=== PATIENT | female | born 1935 | race Caucasian/White ===

== ENCOUNTER 2016-06-15 14:00 | Emergency (ER) | payer MEDICARE, BC ==
[2016-06-15 14:11] VITALS: BP 143/63
--- NOTE | 2016-06-15 14:22 | UC ---
Ear Complaint HPI - HPI Summary HPI Summary: Hearing aides haven't been working well lately, went to [facility] and was told she had wax in her ears and needs to have them flushed. - History of Current Complaint Chief Complaint: UCEar Stated Complaint: PLUGGED EARS Time Seen by Provider: 06/15/16 14:12 Hx Obtained From: Patient Hx Last Menstrual Period: NA ?: No Onset/Duration: Gradual Onset, Lasting Weeks Severity Initially: Mild Severity Currently: Mild Aggravating Factors: Nothing Alleviating Factors: Nothing Associated Signs/Symptoms: Positive: Hearing Loss. Negative: Trauma to Ear - Allergies/Home Medications Allergies/Adverse Reactions: Allergies Allergy/AdvReac Type Severity Reaction Status Date / Time Penicillins [PCN] Allergy Rash Verified 09/06/15 12:19 PMH/Surg Hx/FS Hx/Imm Hx Endocrine History Of: Reports: Thyroid Disease - THYROIDECTOMY Cardiovascular History Of: Reports: Hypertension - Surgical History Surgical History: Yes Surgery Procedure, Year, and Place: THYROIDECTOMY: 1960(PARTIAL), 1984. BILATERAL MASTECTOMY 1962, 1983. CHOLECYSTECTOMY - Family History Known Family History: Positive: Hypertension - Social History Alcohol Use: None Substance Use Type: None Smoking Status (MU): Never Smoked Tobacco Review of Systems Constitutional: Negative Skin: Negative Eyes: Negative ENT: Other - ear fullness Respiratory: Negative Cardiovascular: Negative Gastrointestinal: Negative Genitourinary: Negative Motor: Negative Neurovascular: Negative Musculoskeletal: Negative Neurological: Negative Psychological: Negative All Other Systems Reviewed And Are Negative: Yes Physical Exam Triage Information Reviewed: Yes Appearance: Well-Appearing, No Pain Distress, Well-Nourished Vital Signs: Initial Vital Signs Temp 97.1 F 06/15/16 14:06 Pulse 77 06/15/16 14:06 Resp 16 06/15/16 14:06 BP 143/63 06/15/16 14:06 Pulse Ox 100 06/15/16 14:06 Vital Signs Reviewed: Yes Eye Exam: Normal Eyes: Positive: Conjunctiva Clear ENT: Positive: Pharynx normal, Other: - biat cerumen impaction. Negative: Hearing grossly normal, Nasal congestion Dental Exam: Normal Neck exam: Normal Neck: Positive: Supple, Nontender, No Lymphadenopathy Respiratory Exam: Normal Respiratory: Positive: Chest non-tender, Lungs clear, Normal breath sounds, No respiratory distress, No accessory muscle use Cardiovascular Exam: Normal Cardiovascular: Positive: RRR, No Murmur Musculoskeletal Exam: Normal Neurological Exam: Normal Psychological Exam: Normal Skin Exam: Normal Ear Complaint Course/Dx - Differential Dx/Diagnosis Provider Diagnoses: Bilat cerumen impaction Discharge - Discharge Plan Condition: Stable Disposition: HOME Patient Education Materials: Cerumen Impaction (ED) Referrals: Noa Nelson MD [Primary Care Provider] - If Needed
== END 2016-06-15 14:51 | disposition home or self-care (01) ==
LOC: UCEAST 14:00
DX: H61.23 Impacted cerumen, bilateral (principal); Z88.0 Allergy status to penicillin; Z90.49 Acquired absence of other specified parts of digestive tract
CPT/HCPCS: 99201; G0463

== ENCOUNTER 2017-04-19 14:40 | Day surgery (SDC) | payer MEDICARE, BC ==
[2017-04-19] MEDS ORDERED: Sodium Bicarbonate 8.4% IV* 50 ML VIAL ONE (15:27)
[2017-04-19] MEDS ORDERED: Lidocaine 1% MPF wEPI 200,000* 30 ML SDV ONE (15:28)
[2017-04-19 21:27] VITALS: BP 159/67
--- NOTE | 2017-04-20 05:02 | OP ---
DATE OF OPERATION: 04/19/17 - [facility] DATE OF : 39 SURGEON: Tono Hutton MD TRANSITION TEACHER: None. ANESTHESIOLOGIST: None. ANESTHESIA: Local only with 1% lidocaine with epinephrine. PRE-OP DIAGNOSES: 1. Right carpal tunnel syndrome. 2. Right ulnar nerve compression at the wrist. POST-OP DIAGNOSES: 1. Right carpal tunnel syndrome. 2. Right ulnar nerve compression at the wrist. OPERATIVE PROCEDURE: 1. Right carpal tunnel release. 2. Right ulnar nerve decompression at the wrist. INDICATIONS: Danika is 82. She has had progressive symptoms. We talked about risks and benefits. She wanted to proceed. ESTIMATED BLOOD LOSS: 5 mL. COMPLICATIONS: None. FINDINGS: As expected. DESCRIPTION OF PROCEDURE: Danika was seen in the preoperative holding area. The correct, site, and side of the procedure were identified. We came back to the operating room. The arm was prepped and draped in the usual fashion. In the preop area, we had had a time-out and I infiltrated the operative area with 1% lidocaine with epinephrine and bicarbonate. I made a longitudinal incision in the standard location for a carpal tunnel release. This was brought across wrist flexion crease in Kai-type fashion. The dissection was carried down and the fascia proximally was opened. The ulnar neuro-vascular bundle was followed in the Guyon's canal. The fascia overlying the Guyon's canal was released. There was a very large vessel that was ____ and kinking the ulnar nerve. This was dissected free and then cauterized with the bipolar. The release of the Guyon's canal was completed distally. I then came back proximally and released the antebrachial fascia little bit more. I then came down and released the transverse carpal ligament just off the radial aspect of the hook of Hamate until it was completely decompressed distally. I then came back ulnar and mobilized the ulnar artery a bit and then decompressed the motor branch diving deep around the hook of the Hamate, releasing subfascial layer. Once everything was completely decompressed and there was absolutely no compression on either nerve, I irrigated out the wound. Skin was closed with 4-0 Monocryl suture and dressed with Xeroform, 4x4s, sterile Webril, and an Derick bandage. She was taken to the recovery room in stable condition. [id number]/[facility] #: [id number] MTDD
== END 2017-04-19 21:26 | disposition home or self-care (01) ==
LOC: OREAST 14:40
PROVIDERS: ATTEND Orthopaedic Surgery Hand Surgery
DX: G56.01 Carpal tunnel syndrome, right upper limb (principal); G56.21 Lesion of ulnar nerve, right upper limb; I10 Essential (primary) hypertension; Z85.3 Personal history of malignant neoplasm of breast; E03.9 Hypothyroidism, unspecified
CPT/HCPCS: J2001

== ENCOUNTER 2017-08-28 13:00 | Inpatient (IN) | payer MEDICARE, BC ==
[2017-08-29] MEDS ORDERED: Buffered Lidocaine 0.9% SYRIN* 5 ML/SYR SYRINGE INTRADERM ONE (13:12)
[2017-08-30] MEDS ORDERED: Famotidine TAB* 20 MG PO ONE (06:00)
[2017-08-30] MEDS ORDERED: Dexamethasone IV* 4 MG/ML 1 ML (4 MG) IV SLOW PU ONE (06:00)
[2017-08-30] MEDS ORDERED: Famotidine TAB* 20 MG ONE (06:56)
[2017-08-30] MEDS ORDERED: Dexamethasone IV* 4 MG/ML 1 ML (4 MG) ONE (06:56)
[2017-08-30] MEDS ORDERED: Buffered Lidocaine 0.9% SYRIN* 5 ML/SYR SYRINGE ONE (06:57)
[2017-08-30] MEDS ORDERED: Clindamycin 900 MG IVPREMIX(* 900 MG/50 ML SDV IV ONE (06:57)
[2017-08-30] MEDS ORDERED: fentaNYL* 50 MCG/ML 2 ML VIAL (100 MCG VIAL) ONE (07:27)
[2017-08-30] MEDS ORDERED: Midazolam* 1 MG/ML 2 ML VIAL (2 MG) ONE ×2 (07:27→08:25)
[2017-08-30] MEDS ORDERED: Morphine PF AMP (0.5MG/ML)* 5 MG/10 ML AMP ONE (07:27)
[2017-08-30] MEDS ORDERED: celeCOXIB CAP* 100 MG ONE (07:36)
[2017-08-30] MEDS: celeCOXIB CAP* 200 MG PO SCH ×2 (07:40→20:58)
[2017-08-30] MEDS ORDERED: Bupivacaine 0.5% PF 10 ML VIAL INJ ONE (07:57)
[2017-08-30] MEDS ORDERED: EPHEDrine (Pressors)* 50 MG/ML VIAL ONE (08:42)
[2017-08-30] MEDS ORDERED: Phenylephrine INJ* 10 MG/ML 1 ML VIAL (10 MG) ONE ×2 (08:44→09:12)
[2017-08-30] MEDS ORDERED: Lidocaine 2% PF * 5 ML VIAL ONE (08:51)
[2017-08-30] MEDS ORDERED: Propofol* 10 MG/ML 20 ML BTL IV PUSH ONE (08:51)
[2017-08-30] MEDS ORDERED: Dexmedetomidine* 200 MCG/2 ML 2 ML VIAL ONE (09:31)
[2017-08-30] MEDS ORDERED: Polyethylene Glycol 3350* 17 GM PACKET PO PRN (09:33)
[2017-08-30] MEDS ORDERED: Bisacodyl SUPP* 10 MG SUPP PR PRN (09:33)
[2017-08-30] MEDS ORDERED: Magnesium Hydroxide LIQ* 30 ML UDC PO PRN (09:33)
[2017-08-30] MEDS ORDERED: Scopolamine 1.5 mg* PATCH TRANSDERM PRN (09:43)
[2017-08-30] MEDS ORDERED: Ondansetron INJ* 2 MG/ML VIAL IV PRN (09:43)
[2017-08-30] MEDS ORDERED: Nalbuphine* 20 MG/ML 1 ML VIAL IV PRN (09:43)
[2017-08-30] MEDS ORDERED: Naloxone* 0.4 MG/ML 1 ML VIAL IV PRN ×2 (09:43→09:50)
[2017-08-30] MEDS ORDERED: oxyCODONE TAB* 5 MG TAB PO PRN ×2 (09:43→09:50)
[2017-08-30] MEDS ORDERED: Acetaminophen IV 1GM/100ML * 1,000 MG/100 ML VIAL IVPB ONE (09:50)
[2017-08-30] MEDS ORDERED: PROCHLORPERAZINE INJ 5 MG/ML 2 ML VIAL IV PRN (09:50)
[2017-08-30] MEDS ORDERED: fentaNYL* 50 MCG/ML 2 ML VIAL (100 MCG VIAL) IV PRN (09:50)
[2017-08-30] MEDS ORDERED: Ondansetron INJ* 2 MG/ML VIAL ONE (10:17)
[2017-08-30] MEDS ORDERED: Acetaminophen IV 1GM/100ML * 100 ML ONE (10:51)
[2017-08-30] MEDS: Acetaminophen TAB* 325 MG PO SCH ×2 (11:14→17:30)
--- NOTE | 2017-08-30 11:31 | RAD ---
INDICATION: Status post total left hip replacement surgery. COMPARISON: Comparison is made with a prior study from February 09, 2017. TECHNIQUE: A single portable film of the left hip was obtained in the operating room. FINDINGS: The patient is undergoing a total left hip replacement surgery. The acetabular prostheses is in place. There is also a femoral template prostheses in place. IMPRESSION: INTRAOPERATIVE CONTROL FILMS.
--- NOTE | 2017-08-30 11:56 | RAD ---
Indication: Postop LEFT total hip replacement. Comparison: No relevant prior exams available on the [facility] PACS for comparison. Technique: AP pelvis and AP and crosstable lateral views LEFT hip. Report: LEFT total hip replacement in place with normal alignment. Negative for periprosthetic fracture. Overlying soft tissue edema and subcutaneous emphysema. The contralateral RIGHT hip is remarkable for advanced axial joint space narrowing with associated osteophytosis and subchondral sclerosis. IMPRESSION: Unremarkable immediate postop appearance of the LEFT total hip replacement.
--- NOTE | 2017-08-30 11:56 | RAD ---
Indication: Postop LEFT total hip replacement. Comparison: No relevant prior exams available on the [facility] PACS for comparison. Technique: AP pelvis and AP and crosstable lateral views LEFT hip. Report: LEFT total hip replacement in place with normal alignment. Negative for periprosthetic fracture. Overlying soft tissue edema and subcutaneous emphysema. The contralateral RIGHT hip is remarkable for advanced axial joint space narrowing with associated osteophytosis and subchondral sclerosis. IMPRESSION: Unremarkable immediate postop appearance of the LEFT total hip replacement.
--- NOTE | 2017-08-30 14:27 | CONS ---
CC: Dr. Nelson; Dr. Domingo* CONSULTATION REPORT: DATE OF CONSULT: 08/30/17 PRIMARY CARE PROVIDER: Dr. Nelson. ATTENDING PHYSICIAN WHILE IN THE HOSPITAL: Chadd Mcnair MD (report being dictated by Wiley Mccray NP). REASON FOR MEDICAL CONSULTATION: Evaluation and medical management of comorbid medical conditions. REQUESTING PHYSICIAN OF CONSULT: Dr. Domingo. HISTORY OF PRESENT ILLNESS: Ms. Link is an 82-year-old female patient. She has a history of hypertension; breast cancer, status post bilateral mastectomies ; history of hypothyroidism; macular degeneration; angioedema of unknown etiology and history of arthritis. She presented to Dr. Domingo's service in the outpatient setting, she was having issues with her left hip. She has failed conservative therapy and ultimately felt that she would require and benefit from a total hip replacement, which she underwent today. The patient is evaluated in the PACU. Her only complaint really is that she feels drowsy. She specifically denied having any chest pain, lightheadedness. She states she does not feel faint, she denies having any chest pain, shortness of breath, there is no abdominal pain. She said she does not feel nauseous and her pain is well controlled. Because of her medical complexities, hospitalist service is asked to help with medical management. PAST MEDICAL HISTORY: Significant for: 1. Hypertension. 2. Breast cancer. 3. Hypothyroidism. 4. Macular degeneration. 5. Angioedema. 6. Arthritis. PAST SURGICAL HISTORY: Patient had: 1. Bilateral mastectomies. 2. Thyroidectomy. 3. Cholecystectomy. 4. Villanueva's neuroma excision. 5. Cataract extraction. 6. x2. MEDICATIONS: Home medications include, this is according to the list provided: 1. Tramadol 50 mg p.o. at bedtime. 2. PreserVision 1 tablet p.o. b.i.d. 3. Mobic 15 mg in the morning. 4. Synthroid 150 mcg p.o. daily. 5. Advil 600 mg 4 times a day as needed. 6. Hydrochlorothiazide 25 mg p.o. daily. 7. Glucosamine chondroitin 3 tablets p.o. daily. 8. Cetirizine 10 mg p.o. daily. 9. Calcium with vitamin D 2 tablets p.o. daily. 10. Aspirin 81 mg daily. ALLERGIES: Allergies to medications include PENICILLIN. FAMILY HISTORY: Mother had a history of uterine cancer, father had a history of CAD. SOCIAL HISTORY: She does not smoke. She does drink a glass of wine with dinner. She lives at [place]. Surrogate decision maker is her sister and her children. REVIEW OF SYSTEMS: There is no documented fever. She denies having any significant weight change. There is no double vision. She denies having any ear discharge. There is no rhinorrhea. There is no sore throat. No thyroid enlargement. She denied having any chest pain. No orthopnea, nocturnal dyspnea. There is no abdominal pain, no nausea, no vomiting. No dysuria, no frequency. No seizures, no loss of consciousness. No pruritus and no skin ulcerations. Review of 14 systems completed, all others negative. PHYSICAL EXAM: Vital Signs: Blood pressure 112/58, pulse 69, respirations 21, O2 sat 98%, temperature 97.7. General: At this time, Ms. Link is an 82-year- old female patient, she appears to be well nourished and well developed. She is sitting in the PACU bed. She does not appear to be in any acute distress. HEENT: Head is atraumatic and normocephalic. Eyes: EOMs are intact. Sclerae anicteric and not pale. Neck: Supple. Throat: Oral mucosa appears to be moist. No oropharyngeal erythema. Heart: Sounds S1, S2. Regular rate and rhythm. No murmurs, rubs or gallops. Lungs: Clear to auscultation. No wheezes, rales or rhonchi. Abdomen: Soft, flat, nontender. Bowel sounds are present. Extremities: Pulses are 2+ throughout. She is unable to move the lower extremities as she is in a hip adductor pillow. Distal CSM checks are intact. Neurologically, she is drowsy, but she is awake and she is alert, she is oriented x3. She has no gross focal deficits. Her skin, she has an incision to her left hip, which is covered with a dressing clean, dry and intact. DIAGNOSTIC STUDIES/LAB DATA: Labs reveal a WBC of 8.0, RBC of 4.27, hemoglobin 13.3, hematocrit of 39, platelet count of 243. INR 0.94. Sodium is 139, potassium 4, chloride 100, bicarb 32, BUN 22, creatinine 1.04, glucose is 70. Urine obtained preop showed 1+ protein, 1+ blood, 3+ rbc. Microbiology was no growth. EKG preop showed normal sinus rhythm, rate of 77. No ST elevation or T-wave inversions. She had a preop chest x-ray, showed no active cardiopulmonary disease. Old medical records were reviewed. IMPRESSION: Ms. Link is an 82-year-old female patient coming into Dr. Domingo's service today for an elective left total hip. We were asked to evaluate in consult. RECOMMENDATIONS: 1. Status post left total hip with further management with Dr. Domingo and her team. 2. Hypertension. I am going to hold her hydrochlorothiazide in the perioperative setting. She was 120 systolic postoperatively. I do not want her to become hypotensive. So, I will hold this and restart when able. 3. History of breast cancer, follow up with the PCP. 4. History of hypothyroidism, continue her Synthroid. 5. Macular degeneration, continue supportive care and meds prescribed. 6. Angioedema. Not an active issue currently. 7. Arthritis, follow up with her PCP. 8. Code status: She does have a MOLST form; however, she has rescinded this and she is wishing to be a full code during this hospitalization, so we will honor this. 9. DVT prophylaxis deferred to the primary team. 10. Fluids, electrolytes and nutrition: I would recommend a regular diet. TIME SPENT: Time spent on the consult 50 minutes; greater than half the time spent [id number] with the patient, obtaining my history and physical, the other half time was spent going over the plan of care with the patient and implementing plan of care. I did discuss the plan of care with my attending, Dr. Mcnair, he is in agreement. WILEY MCCRAY, SERGIO [id number]/[facility] #: [id number] DAGO
[2017-08-30] MEDS ORDERED: Warfarin TAB(*) 6 MG PO ONE (17:00)
[2017-08-30] MEDS: Clindamycin 600 MG IVPREMIX(* 600 MG/50 ML SDV IV SCH (17:30)
[2017-08-30] MEDS: Magnesium Hydroxide LIQ* 30 ML UDC PO SCH (20:57)
[2017-08-30] MEDS: Docusate CAP* 100 MG PO SCH (20:58)
[2017-08-30] MEDS: MINERALS AREDS2 PO SCH (20:59)
[2017-08-30] MEDS: MULTIVITAMINS PO SCH (20:59)
--- NOTE | 2017-08-30 23:03 | OP ---
OPERATIVE REPORT: DATE OF OPERATION: 08/30/17 DATE OF : 39 ATTENDING SURGEON: Ricarda Domingo MD SHEETMETAL TRADES WORKER: HEATH Dewitt Clint did help throughout the procedure with preparation of the leg, wound retraction, manipulation of the hip and wound closure. ANESTHESIOLOGIST: Dr. Batres. ANESTHESIA: Spinal. 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 OPERATIVE PROCEDURE: Left total hip arthroplasty with acetabular bone autografting and primary abductor tendon repair. COMPLICATIONS: None. ESTIMATED BLOOD LOSS: 300 cc. SPECIMEN: Femoral head and acetabular reamings sent to pathology. HARDWARE USED: This was uncemented Lobito total hip arthroplasty hardware. For the cup, a Tritanium cluster hole shell 54E, 2 Torx cancellous bone screws were used both for a length 20 mm. For the liner, an MDM cementless liner 42E. For the stem, an Accolade TMZF size 3 with a 127-degree neck. For the head, a Lobito LFIT V40 femoral head 28 -4 and the insert is a 28/48/42E Baptist X3 MDM insert. BRIEF HISTORY/INDICATIONS: Ms. Link is an 82-year-old female with years of increasingly severe left hip pain. Radiographs showed bone on bone arthritis. She failed conservative treatment with anti-inflammatory, pain medication and physical therapy. She elected to undergo left total hip arthroplasty due to continued pain and decreased quality of life. Informed consent was obtained from the patient. She understood the risk of surgery included, but were not limited to bleeding, infection, damage to nearby structures, continued pain, need for further surgery, intraoperative fracture, nerve palsy, hardware failure or loosening, dislocation, leg length discrepancy, stroke, heart attack , blood clot and . She wished to proceed. INTRAOPERATIVE FINDINGS: Intraoperatively, the patient was noted to have severe end-stage arthritis. She had complete loss of cartilage along the acetabulum and femoral head. She had extensive osteophyte formation around the femoral head and neck. The patient was noted to have subchondral cyst formation in the superior weightbearing portion of the acetabulum. This was bone grafted with autograft in the femoral head. The patient was also noted to have a gluteus medius tendon tear involving the vast majority of the greater trochanteric insertion. DESCRIPTION OF PROCEDURE: Ms. Link was identified in the preanesthesia unit. The left lower extremity was marked as a correct operative side. Informed consent was signed and placed in the chart. The patient was taken to the operating room and placed under spinal anesthesia. A Hernandez catheter was placed. The patient was placed in the right lateral position on the peg board. All bony prominences were well padded. Left lower extremity was prepped and draped in the usual sterile fashion. Preop time-out was made to correctly identify the patient's side and site. Appropriate perioperative antibiotics were given within 1 hour of incision. A 12 cm posterior hip incision was made with a 10 blade carried down to the lateral fascial layer. Lateral fascial layer was incised in line with the skin incision. Charnley retractor was placed. The piriformis and conjoined tendon were elevated off the posterolateral femur using electrocautery. These were tagged with #5 Ethibond. Electrocautery was used to make a standard posterolateral capsular flap. This was also tagged with #5 Ethibond. The hip was carefully dislocated. Lesser troch to the center of the femoral head measured 55 mm. Oscillating saw was used to make the appropriate femoral neck cut. It was clearly noted that the abductor tendon at the greater trochanter had chronic appearing tear and there was bare bone here instead of intact tendon. The tendon had retracted proximally. The femoral head was removed and the femur was retracted anteriorly. After appropriate placement of retractors, the acetabulum was easily visualized. Any remaining labrum was sharply removed from the acetabular rim. The acetabulum was successfully reamed up to a size 53. A bleeding subchondral bone bed was obtained. There was subchondral cyst formation in the superior weightbearing dome of the acetabulum. Any cystic material was carefully removed using a curette and rongeur. Femoral head autograft was used to pack the cystic area. 53 trial had excellent fit. Final implant chosen was a Tritanium cluster hole shell 54E. This was impacted into the acetabulum without difficulty. The hip was stable and had appropriate anteversion and abduction angle. Two 20 mm screws were placed in the superior posterior quadrant for extra stability. An MDM cementless liner 42E was chosen. This was impacted into the acetabulum. Stability of the liner was checked and rechecked and noted to be stable. Attention was next turned to preparation of the proximal femur. A canal finder was used to enter the proximal femur. The proximal femur was sequentially broached up to a size 3. Size 3 broach had good fit. A 127 neck trial was placed as well as 28 +0 head trial. Lesser troch to center of femoral head measured 60 mm, therefore -4 head trial was chosen. Lesser troch to center of femoral head measured 56 mm. The hip was reduced and taken through a range of motion. The hip was stable in all positions. There was appropriate soft tissue tension and leg lengths. The hip was dislocated. All trials were removed. Final implants chosen was an accolade TMZF size 3 with a 127-degree neck. This was impacted into the femoral canal without difficulty. There was excellent stability and appropriate anteversion. An LFIT V40 28 -4 femoral head was chosen as well a 28/48/42E MDM insert. This was impacted on to the femoral neck without difficulty. The hip was reduced and taken through a range of motion. The hip was stable in all positions. Previously tagged capsule and tendons were reapproximated to the posterolateral femur using #5 Ethibond through 2 trochanteric drill holes. #5 Ethibond was then used to primarily repair any retracted tendon back to the region of the greater trochanter in its natural origin. Lateral fascial layer was closed using interrupted #1 Vicryl. The rest of the incision was closed in a layered fashion using 0 and 2-0 Vicryl. Skin was closed using running 3-0 Monocryl and Dermabond. Sterile Adaptic, 4x4s and paper tape were placed over this. The patient's anesthesia was reversed without difficulty. She was taken to the PACU in stable condition. Intended weightbearing will be weightbearing as tolerated. Intended DVT prophylaxis will be Coumadin with a Lovenox bridge. [id number]/[facility] #: [id number] [facility]
[2017-08-31] MEDS ORDERED: Ondansetron TAB* 4 MG PO PRN (00:25)
[2017-08-31] MEDS ORDERED: diPHENhydraMINE IV* 50 MG/ML 1 ml VIAL (BENADRYL) IV PRN (00:25)
[2017-08-31] MEDS ORDERED: Ondansetron INJ* 2 MG/ML VIAL IV PRN (00:25)
[2017-08-31] MEDS ORDERED: Morphine VIAL* 4 MG/ML VIAL (1 ml vial) IV PRN (00:25)
[2017-08-31] MEDS: Acetaminophen TAB* 325 MG PO SCH (01:30)
[2017-08-31] MEDS: Clindamycin 600 MG IVPREMIX(* 600 MG/50 ML SDV IV SCH ×2 (01:31→10:26)
[2017-08-31] MEDS: Cyclobenzaprine TAB* 10 MG PO PRN ×2 (01:31→21:05)
[2017-08-31] MEDS: oxyCODONE/Acetamin 5/325 MG* TAB PO PRN ×4 (05:13→21:05)
[2017-08-31] MEDS: Levothyroxine TAB* 150 MCG TAB PO SCH (05:13)
[2017-08-31 06:29] LABS: Hematocrit 29 % (35-47); Hemoglobin 10.3 g/dl (12.0-16.0); Mean Platelet Volume 6.8 um3 (7.4-10.4); Platelet Count 215 10^3/ul (150-450)
[2017-08-31 06:34] LABS: INR 1.02 (0.77-1.02)
[2017-08-31 06:48] LABS: EGFR Non-African American 60.2 (>60)
--- NOTE | 2017-08-31 08:59 | PN ---
Progress Note - Progress Note Date of Service: 08/31/17 SOAP: Subjective: 82 y/o female s/p L DONN by Dr. Domingo 08/30/2017. VSS, afebrile overnight. Patient feeling well, denies SOB, lightheadedness, no chest pain. Doing well , no questions re: surgery. Objective: General- Well appearing, NAD, AO SItting in chair without difficulty MSK- LLE- DF/PF = b/l, PT 2+, negative homans sign, urgical dressing over l hip intacat, no drainage noted, no odor. no induration. Vital Signs Temp 98.5 F 08/31/17 15:27 Pulse 70 08/31/17 15:27 Resp 16 08/31/17 15:55 BP 101/43 08/31/17 15:27 Pulse Ox 97 08/31/17 15:27 Intake & Output 08/30/17 08/31/17 08/31/17 18:59 06:59 18:59 Intake Total 1650 2125 1387 Output Total 775 725 0 Balance 875 1400 1387 Weight 65.136 kg Intake: IV Fluids 1650 1095 987 ABX - CLINDAMYCIN 105 LR 1650 990 987 Oral 1030 400 Output: Urine 0 Hernandez 225 725 Emesis 350 Estimated Blood Loss 200 Other: # Bowel Movements 0 0 Assessment: Stable 82 y/o female s/p L DONN by Dr. Domingo 08/30/2017. Plan: - DVT prophylaxis- lovenox, coumadin INR 1.02 - 4 mg coumadin tonight. - Continue PT/ OT - Follow up with Dr. Domingo within 10-14 days - H&H - Stable - post-op IV ABX - Clinda running Acetaminophen (Tylenol Tab*) 650 mg PO Q4H PRN PRN Reason: PAIN OR TEMPERATURE Bisacodyl (Dulcolax Supp*) 10 mg IA DAILY PRN PRN Reason: constipation Cetirizine HCl (Zyrtec*) 10 mg PO 2100 JA PRN Reason: Protocol Cyclobenzaprine HCl (Flexeril Tab*) 10 mg PO TID PRN PRN Reason: SPASMS Last Admin: 08/31/17 01:31 Dose: 10 mg Diphenhydramine HCl (Benadryl Iv*) 12.5 mg IV Q6H PRN PRN Reason: PRURITIS Docusate Sodium (Colace Cap*) 100 mg PO BID [facility] Last Admin: 08/31/17 10:25 Dose: 100 mg Enoxaparin Sodium (Lovenox(*)) 30 mg SUBCUT Q24H [facility] Last Admin: 08/31/17 12:30 Dose: 30 mg Lactated Ringer's (Lactated Ringers 1000 Ml Bag*) 1,000 mls @ 100 mls/hr IV PER RATE [facility] Last Admin: 08/31/17 15:55 Dose: 100 mls/hr Lactulose (Lactulose*) 30 ml PO Q6H PRN PRN Reason: constipation Levothyroxine Sodium (Synthroid Tab*) 150 mcg PO DAILY@0600 [facility] Last Admin: 08/31/17 05:13 Dose: 150 mcg Magnesium Hydroxide (Milk Of Magnesia Liq*) 30 ml PO BID [facility] Last Admin: 08/31/17 10:26 Dose: 30 ml Magnesium Hydroxide (Milk Of Magnesia Liq*) 30 ml PO Q6H PRN PRN Reason: constipation Morphine Sulfate (Morphine Vial*) 2 mg IV Q2H PRN PRN Reason: PAIN Multivitamins/Minerals (Preservision Areds 2) 1 cap PO BID [facility] Last Admin: 08/31/17 10:03 Dose: Not Given Ondansetron HCl (Zofran Inj*) 4 mg IV Q6H PRN PRN Reason: nausea Ondansetron HCl (Zofran Tab*) 4 mg PO Q6H PRN PRN Reason: NAUSEA Oxycodone HCl (Roxycodone Tab*) 10 mg PO Q4H PRN PRN Reason: SEVERE PAIN Oxycodone/Acetaminophen (Percocet 5/325 Tab*) 2 tab PO Q4H PRN PRN Reason: PAIN Last Admin: 08/31/17 10:24 Dose: 2 tab Oxycodone/Acetaminophen (Percocet 5/325 Tab*) 1 tab PO Q4H PRN PRN Reason: PAIN Last Admin: 08/31/17 15:55 Dose: 1 tab Pharmacy Profile Note (Scopolamine Patch Remove*) 1 note PATCH OFF .AFTER 72 HOURS PRN PRN Reason: nausea Stop: 09/02/17 09:46 Pharmacy Profile Note (Coumadin Daily Reminder*) 1 note FOLLOW UP 1700 [facility] Last Admin: 08/30/17 17:31 Dose: 1 note Polyethylene Glycol/Electrolytes (Miralax*) 17 gm PO DAILY PRN PRN Reason: Constipation Warfarin Sodium (Coumadin Tab(*)) 4 mg PO ONCE@1700 ONE PRN Reason: Protocol Stop: 08/31/17 17:01
[2017-08-31] MEDS ORDERED: Hydrochlorothiazide TAB* 25 MG PO SCH (09:00)
[2017-08-31] MEDS ORDERED: Cetirizine* 10 MG TAB PO SCH (09:00)
[2017-08-31] MEDS: MULTIVITAMINS PO SCH ×2 (10:03→22:16)
[2017-08-31] MEDS: MINERALS AREDS2 PO SCH ×2 (10:03→22:16)
[2017-08-31] MEDS: Docusate CAP* 100 MG PO SCH ×2 (10:25→21:05)
[2017-08-31] MEDS: Magnesium Hydroxide LIQ* 30 ML UDC PO SCH ×2 (10:26→21:04)
[2017-08-31] MEDS: Enoxaparin(*) 30 MG/0.3 ML SYR SUBCUT SCH (12:30)
--- NOTE | 2017-08-31 13:52 | PN ---
Subjective Date of Service: 08/31/17 Interval History: Ms. Link reports that she is feeling well today. She did very well with physical therapy and walked stairs. Nursing staff report that she has had urinary retention after removal of her sultana. She has tried to urinate several times but has been unable to. Bladder scanner only shows about 200Ml, IV fluids continue. She denies chest pain, SOB, nausea, or abdominal pain. Objective Active Medications: Acetaminophen (Tylenol Tab*) 650 mg PO Q4H PRN Bisacodyl (Dulcolax Supp*) [address] DAILY PRN Cetirizine HCl (Zyrtec*) 10 mg PO 2100 JA Cyclobenzaprine HCl (Flexeril Tab*) 10 mg PO TID PRN Diphenhydramine HCl (Benadryl Iv*) 12.5 mg IV Q6H PRN Docusate Sodium (Colace Cap*) 100 mg PO BID JA Enoxaparin Sodium (Lovenox(*)) 30 mg SUBCUT Q24H JA Lactated Ringer's (Lactated Ringers 1000 Ml Bag*) 1,000 mls @ 100 mls/hr IV PER RATE JA Lactulose (Lactulose*) 30 ml PO Q6H PRN Levothyroxine Sodium (Synthroid Tab*) 150 mcg PO DAILY@0600 JA Magnesium Hydroxide (Milk Of Magnesia Liq*) 30 ml PO BID JA Magnesium Hydroxide (Milk Of Magnesia Liq*) 30 ml PO Q6H PRN Morphine Sulfate (Morphine Vial*) 2 mg IV Q2H PRN Multivitamins/Minerals (Preservision Areds 2) 1 cap PO BID JA Ondansetron HCl (Zofran Inj*) 4 mg IV Q6H PRN Ondansetron HCl (Zofran Tab*) 4 mg PO Q6H PRN Oxycodone HCl (Roxycodone Tab*) 10 mg PO Q4H PRN Oxycodone/Acetaminophen (Percocet 5/325 Tab*) 2 tab PO Q4H PRN Oxycodone/Acetaminophen (Percocet 5/325 Tab*) 1 tab PO Q4H PRN Pharmacy Profile Note (Scopolamine Patch Remove*) 1 note PATCH OFF .AFTER 72 HOURS PRN Pharmacy Profile Note (Coumadin Daily Reminder*) 1 note FOLLOW UP 1700 JA Polyethylene Glycol/Electrolytes (Miralax*) 17 gm PO DAILY PRN Vital Signs: Temp Pulse Resp BP Pulse Ox 97.9 F 65 16 91/40 95 08/31/17 11:58 08/31/17 11:58 08/31/17 12:31 08/31/17 11:58 08/31/17 12:00 Oxygen Devices in Use Now: None Appearance: Female lying in bed in NAD Eyes: No Scleral Icterus Ears/Nose/Mouth/Throat: Mucous Membranes Moist Neck: Trachea Midline Respiratory: Symmetrical Chest Expansion and Respiratory Effort, Clear to Auscultation Cardiovascular: NL Sounds; No Murmurs; No JVD, No Edema Abdominal: NL Sounds; No Tenderness; No Distention Lymphatic: No Cervical Adenopathy Extremities: No Edema Skin: No Rash or Ulcers Neurological: Alert and Oriented x 3, NL Muscle Strength and Tone Nutrition: Taking PO's Result Diagrams: 08/31/17 05:44 08/31/17 05:44 Assess/Plan/Problems-Billing Assessment: Ms. Link is an 82 yo female with a PMH of hypertension who was admitted on 08/30 for elective left total hip replacement. - Patient Problems (1) S/P hip replacement Comment: - Management per ortho. - Pain meds prn with bowel regimen. - PT/OT. - Monitor H/H. (2) Urinary retention Comment: - Straight cath as needed tonight. - Continue IV fluids and encourage po intake. (3) Hypertension Comment: - SBP 90-140s. - Hold hctz. (4) Hypothyroidism Comment: - Continue levothyroxine. (5) DVT prophylaxis Comment: - Lovenox with warfarin per ortho. (6) Full code status Comment: Status and Disposition: Inpatient. Disposition per ortho.
[2017-08-31] MEDS ORDERED: Warfarin TAB(*) 4 MG PO ONE (17:00)
[2017-08-31] MEDS: Cetirizine* 10 MG TAB PO SCH (21:05)
[2017-09-01] MEDS: oxyCODONE TAB* 5 MG TAB PO PRN (01:39)
[2017-09-01] MEDS: Levothyroxine TAB* 150 MCG TAB PO SCH (05:47)
[2017-09-01] MEDS: oxyCODONE/Acetamin 5/325 MG* TAB PO PRN ×3 (05:48→17:10)
[2017-09-01 05:57] LABS: Hematocrit 27 % (35-47); Hemoglobin 9.4 g/dl (12.0-16.0); Mean Platelet Volume 6.8 um3 (7.4-10.4); Platelet Count 182 10^3/ul (150-450)
[2017-09-01 06:13] LABS: INR 1.1 (0.77-1.02)
--- NOTE | 2017-09-01 07:53 | PN ---
Progress Note - Progress Note Date of Service: 09/01/17 SOAP: Subjective: Pt. is alert, reports PT is progressing. Severe pain this AM. Objective: LLE - dressing changed, inc c/d/i. significant bruising. distally nvi. Vital Signs: Temp Pulse Resp BP Pulse Ox 99.5 F 87 16 131/52 96 09/01/17 03:57 09/01/17 03:57 09/01/17 05:48 09/01/17 03:57 09/01/17 03:57 Laboratory Results - last 24 hr 09/01/17 09/01/17 05:46 05:46 Hgb 9.4 L Hct 27 L Plt Count 182 MPV 6.8 L INR (Anticoag Therapy) 1.10 H Assessment: 82 yo F pod 2 s/p LTHA Plan: wbat lle with post hip precautions pt/ot plan d/c to [facility] 09/03
[2017-09-01] MEDS: Magnesium Hydroxide LIQ* 30 ML UDC PO SCH ×2 (09:19→21:15)
[2017-09-01] MEDS: Docusate CAP* 100 MG PO SCH ×2 (09:19→21:15)
[2017-09-01] MEDS: MULTIVITAMINS PO SCH ×2 (09:20→21:15)
[2017-09-01] MEDS: MINERALS AREDS2 PO SCH ×2 (09:20→21:15)
[2017-09-01] MEDS: Enoxaparin(*) 30 MG/0.3 ML SYR SUBCUT SCH (12:51)
--- NOTE | 2017-09-01 14:38 | PN ---
Subjective Date of Service: 09/01/17 Interval History: Ms. Link reports doing well today. She denies chest pain, SOB, nausea, or abdominal pain. Her pain is well controlled. She reports sleeping well through the night. Objective Active Medications: Acetaminophen (Tylenol Tab*) 650 mg PO Q4H PRN Bisacodyl (Dulcolax Supp*) 10 mg [place] DAILY PRN Cetirizine HCl (Zyrtec*) 10 mg PO 2100 JA Cyclobenzaprine HCl (Flexeril Tab*) 10 mg PO TID PRN Diphenhydramine HCl (Benadryl Iv*) 12.5 mg IV Q6H PRN Docusate Sodium (Colace Cap*) 100 mg PO BID JA Enoxaparin Sodium (Lovenox(*)) 30 mg SUBCUT Q24H JA Lactated Ringer's (Lactated Ringers 1000 Ml Bag*) 1,000 mls @ 100 mls/hr IV PER RATE JA Lactulose (Lactulose*) 30 ml PO Q6H PRN Levothyroxine Sodium (Synthroid Tab*) 150 mcg PO DAILY@0600 JA Magnesium Hydroxide (Milk Of Magnesia Liq*) 30 ml PO BID JA Magnesium Hydroxide (Milk Of Magnesia Liq*) 30 ml PO Q6H PRN Morphine Sulfate (Morphine Vial*) 2 mg IV Q2H PRN Multivitamins/Minerals (Preservision Areds 2) 1 cap PO BID JA Ondansetron HCl (Zofran Inj*) 4 mg IV Q6H PRN Ondansetron HCl (Zofran Tab*) 4 mg PO Q6H PRN Oxycodone HCl (Roxycodone Tab*) 10 mg PO Q4H PRN Oxycodone/Acetaminophen (Percocet 5/325 Tab*) 2 tab PO Q4H PRN Oxycodone/Acetaminophen (Percocet 5/325 Tab*) 1 tab PO Q4H PRN Pharmacy Profile Note (Scopolamine Patch Remove*) 1 note PATCH OFF .AFTER 72 HOURS PRN Pharmacy Profile Note (Coumadin Daily Reminder*) 1 note FOLLOW UP 1700 JA Polyethylene Glycol/Electrolytes (Miralax*) 17 gm PO DAILY PRN Warfarin Sodium (Coumadin Tab(*)) 8 mg PO ONCE@1700 ONE Vital Signs: Temp Pulse Resp BP Pulse Ox 98.9 F 68 16 102/44 97 09/01/17 11:09 09/01/17 11:09 09/01/17 12:50 09/01/17 11:09 09/01/17 11:09 Oxygen Devices in Use Now: None Appearance: Female sitting up in chair in NAD Eyes: No Scleral Icterus Ears/Nose/Mouth/Throat: Mucous Membranes Moist Neck: Trachea Midline Respiratory: Symmetrical Chest Expansion and Respiratory Effort, Clear to Auscultation Cardiovascular: NL Sounds; No Murmurs; No JVD, No Edema Abdominal: NL Sounds; No Tenderness; No Distention Extremities: No Edema Skin: No Rash or Ulcers Neurological: Alert and Oriented x 3, NL Muscle Strength and Tone Nutrition: Taking PO's Result Diagrams: 09/01/17 05:46 08/31/17 05:44 Assess/Plan/Problems-Billing Assessment: Ms. Link is an 82 yo female with a PMH of hypertension who was admitted on 08/30 for elective left total hip replacement. - Patient Problems (1) S/P hip replacement Comment: - Management per ortho. - Pain meds prn with bowel regimen. - PT/OT. - Hgb 9.4, asymptomatic. (2) Urinary retention Comment: - Resolved. - Continue IV fluids and encourage po intake. (3) Hypertension Comment: - SBP 90-140s. - Hold hctz. (4) Hypothyroidism Comment: - Continue levothyroxine. (5) DVT prophylaxis Comment: - Lovenox with warfarin per ortho. (6) Full code status Comment: Status and Disposition: Inpatient. Disposition per ortho.
[2017-09-01] MEDS ORDERED: Warfarin TAB(*) 4 MG PO ONE (17:00)
[2017-09-01] MEDS: Cetirizine* 10 MG TAB PO SCH (21:14)
[2017-09-02] MEDS: Levothyroxine TAB* 150 MCG TAB PO SCH (05:23)
[2017-09-02] MEDS: oxyCODONE TAB* 5 MG TAB PO PRN (05:23)
[2017-09-02 06:18] LABS: Hematocrit 28 % (35-47); Hemoglobin 9.6 g/dl (12.0-16.0); Mean Platelet Volume 6.7 um3 (7.4-10.4); Platelet Count 201 10^3/ul (150-450)
[2017-09-02 06:25] LABS: INR 1.24 (0.77-1.02)
[2017-09-02] MEDS: MINERALS AREDS2 PO SCH ×2 (08:49→20:46)
[2017-09-02] MEDS: Magnesium Hydroxide LIQ* 30 ML UDC PO SCH ×2 (08:49→20:46)
[2017-09-02] MEDS: MULTIVITAMINS PO SCH ×2 (08:49→20:46)
[2017-09-02] MEDS: Docusate CAP* 100 MG PO SCH ×2 (08:49→20:46)
--- NOTE | 2017-09-02 09:23 | PN ---
Subjective Date of Service: 09/02/17 Interval History: Ms. Link notes that she has had a mcfp history of difficulty with completely emptying her bladder. She notes that she is having some trouble with this during this hospitalization but that it is improving. She has followed with [facility] in the past and plan to do so again on discharge. She denies other complaint and reports she slept well last night. Objective Active Medications: Acetaminophen (Tylenol Tab*) 650 mg PO Q4H PRN Bisacodyl (Dulcolax Supp*) 10 mg [place] DAILY PRN Cetirizine HCl (Zyrtec*) 10 mg PO 2100 JA Cyclobenzaprine HCl (Flexeril Tab*) 10 mg PO TID PRN Diphenhydramine HCl (Benadryl Iv*) 12.5 mg IV Q6H PRN Docusate Sodium (Colace Cap*) 100 mg PO BID JA Enoxaparin Sodium (Lovenox(*)) 30 mg SUBCUT Q24H JA Lactated Ringer's (Lactated Ringers 1000 Ml Bag*) 1,000 mls @ 100 mls/hr IV PER RATE JA Lactulose (Lactulose*) 30 ml PO Q6H PRN Levothyroxine Sodium (Synthroid Tab*) 150 mcg PO DAILY@0600 JA Magnesium Hydroxide (Milk Of Magnesia Liq*) 30 ml PO BID JA Magnesium Hydroxide (Milk Of Magnesia Liq*) 30 ml PO Q6H PRN Morphine Sulfate (Morphine Vial*) 2 mg IV Q2H PRN Multivitamins/Minerals (Preservision Areds 2) 1 cap PO BID JA Ondansetron HCl (Zofran Inj*) 4 mg IV Q6H PRN Ondansetron HCl (Zofran Tab*) 4 mg PO Q6H PRN Oxycodone HCl (Roxycodone Tab*) 10 mg PO Q4H PRN Oxycodone/Acetaminophen (Percocet 5/325 Tab*) 2 tab PO Q4H PRN Oxycodone/Acetaminophen (Percocet 5/325 Tab*) 1 tab PO Q4H PRN Pharmacy Profile Note (Scopolamine Patch Remove*) 1 note PATCH OFF .AFTER 72 HOURS PRN Pharmacy Profile Note (Coumadin Daily Reminder*) 1 note FOLLOW UP 1700 JA Polyethylene Glycol/Electrolytes (Miralax*) 17 gm PO DAILY PRN Vital Signs: Temp Pulse Resp BP Pulse Ox 97.9 F 85 14 130/50 98 09/02/17 11:10 09/02/17 11:10 09/02/17 11:10 09/02/17 11:19 09/02/17 11:10 Oxygen Devices in Use Now: None Appearance: Female lying in bed in NAD Eyes: No Scleral Icterus Ears/Nose/Mouth/Throat: NL Teeth, Lips, Gums Respiratory: Symmetrical Chest Expansion and Respiratory Effort, Clear to Auscultation Cardiovascular: NL Sounds; No Murmurs; No JVD, No Edema Abdominal: NL Sounds; No Tenderness; No Distention Lymphatic: No Cervical Adenopathy Extremities: No Edema Skin: No Rash or Ulcers Neurological: Alert and Oriented x 3, NL Muscle Strength and Tone Nutrition: Taking PO's Result Diagrams: 09/02/17 06:07 08/31/17 05:44 Assess/Plan/Problems-Billing Assessment: Ms. Link is an 82 yo female with a PMH of hypertension who was admitted on 08/30 for elective left total hip replacement. - Patient Problems (1) S/P hip replacement Comment: - Management per ortho. - Pain meds prn with bowel regimen. - PT/OT. - Hgb 9.6, stable. (2) Urinary retention Comment: - Resolved. - Patient will follow up with [facility] (3) Hypertension Comment: - SBP 90-140s. - Hold hctz. (4) Hypothyroidism Comment: - Continue levothyroxine. (5) DVT prophylaxis Comment: - Lovenox with warfarin per ortho. (6) Full code status Comment: Status and Disposition: Inpatient. Disposition per ortho.
[2017-09-02] MEDS ORDERED: Scopolamine PATCH Remove* 1 NOTE MISC PATCH OFF PRN (09:45)
[2017-09-02] MEDS: Enoxaparin(*) 30 MG/0.3 ML SYR SUBCUT SCH (12:13)
[2017-09-02] MEDS: Acetaminophen TAB* 325 MG PO PRN (12:14)
[2017-09-02] MEDS ORDERED: Warfarin TAB(*) 6 MG PO ONE (19:00)
[2017-09-02] MEDS: Cetirizine* 10 MG TAB PO SCH (20:45)
--- NOTE | 2017-09-02 23:09 | PN ---
Progress Note - Progress Note Date of Service: 09/02/17 SOAP: Subjective: Pt sitting at bedside. No complaint of pain. Denies F/C Objective: Vital Signs: Temp Pulse Resp BP Pulse Ox 98.7 F 78 17 132/52 99 09/02/17 19:20 09/02/17 19:20 09/02/17 20:48 09/02/17 19:20 09/02/17 19:20 Laboratory Last Values Hgb 9.6 g/dl (12.0-16.0) L 09/02/17 06:07 Hct 28 % (35-47) L 09/02/17 06:07 Plt Count 201 10^3/ul (150-450) 09/02/17 06:07 MPV 6.7 um3 (7.4-10.4) L 09/02/17 06:07 INR (Anticoag Therapy) 1.24 (0.77-1.02) H 09/02/17 06:07 Sodium 136 mmol/L (139-145) L 08/31/17 05:44 Potassium 3.6 mmol/L (3.5-5.0) 08/31/17 05:44 Chloride 97 mmol/L (101-111) L 08/31/17 05:44 Carbon Dioxide 31 mmol/L (22-32) 08/31/17 05:44 Anion Gap 8 mmol/L (2-11) 08/31/17 05:44 BUN 26 mg/dL (6-24) H 08/31/17 05:44 Creatinine 0.90 mg/dL (0.51-0.95) 08/31/17 05:44 Est GFR ( Amer) 77.5 (>60) 08/31/17 05:44 Est GFR (Non-Af Amer) 60.2 (>60) 08/31/17 05:44 BUN/Creatinine Ratio 28.9 (8-20) H 08/31/17 05:44 Glucose 106 mg/dL (70-100) H 08/31/17 05:44 Calcium 8.0 mg/dL (8.6-10.3) L 08/31/17 05:44 Dressing C/D/I. Calves soft, nontender, DP pulses 2+. Sensation intact to light touch distally Assessment: 82yo female s/p left DONN POD #3 Plan: OOB PT/OT Pain control DVT Prophylaxis - Coumadin 6 mg today DC to [facility]
[2017-09-03 05:56] LABS: Hematocrit 27 % (35-47); Hemoglobin 9.3 g/dl (12.0-16.0); Mean Platelet Volume 6.8 um3 (7.4-10.4); Platelet Count 216 10^3/ul (150-450)
[2017-09-03 06:01] LABS: INR 1.45 (0.77-1.02)
[2017-09-03] MEDS: Levothyroxine TAB* 150 MCG TAB PO SCH (06:13)
--- NOTE | 2017-09-03 07:51 | PN ---
Subjective Date of Service: 09/03/17 Interval History: Ms. Link reports feeling well and is eager for discharge to home. Objective Active Medications: Acetaminophen (Tylenol Tab*) 650 mg PO Q4H PRN Bisacodyl (Dulcolax Supp*) 10 mg [place] DAILY PRN Cetirizine HCl (Zyrtec*) 10 mg PO 2100 JA Cyclobenzaprine HCl (Flexeril Tab*) 10 mg PO TID PRN Diphenhydramine HCl (Benadryl Iv*) 12.5 mg IV Q6H PRN Docusate Sodium (Colace Cap*) 100 mg PO BID JA Enoxaparin Sodium (Lovenox(*)) 30 mg SUBCUT Q24H JA Lactated Ringer's (Lactated Ringers 1000 Ml Bag*) 1,000 mls @ 100 mls/hr IV PER RATE JA Lactulose (Lactulose*) 30 ml PO Q6H PRN Levothyroxine Sodium (Synthroid Tab*) 150 mcg PO DAILY@0600 JA Magnesium Hydroxide (Milk Of Magnesia Liq*) 30 ml PO BID JA Magnesium Hydroxide (Milk Of Magnesia Liq*) 30 ml PO Q6H PRN Morphine Sulfate (Morphine Vial*) 2 mg IV Q2H PRN Multivitamins/Minerals (Preservision Areds 2) 1 cap PO BID JA Ondansetron HCl (Zofran Inj*) 4 mg IV Q6H PRN Ondansetron HCl (Zofran Tab*) 4 mg PO Q6H PRN Oxycodone HCl (Roxycodone Tab*) 10 mg PO Q4H PRN Oxycodone/Acetaminophen (Percocet 5/325 Tab*) 2 tab PO Q4H PRN Oxycodone/Acetaminophen (Percocet 5/325 Tab*) 1 tab PO Q4H PRN Pharmacy Profile Note (Coumadin Daily Reminder*) 1 note FOLLOW UP 1700 JA Polyethylene Glycol/Electrolytes (Miralax*) 17 gm PO DAILY PRN Vital Signs: Temp Pulse Resp BP Pulse Ox 98.6 F 77 16 141/62 97 09/03/17 03:58 09/03/17 03:58 09/03/17 03:58 09/03/17 03:58 09/03/17 03:58 Oxygen Devices in Use Now: None Appearance: Female lying in bed in NAD Eyes: No Scleral Icterus Ears/Nose/Mouth/Throat: Mucous Membranes Moist Neck: NL Appearance and Movements; NL JVP Respiratory: Symmetrical Chest Expansion and Respiratory Effort, Clear to Auscultation Cardiovascular: NL Sounds; No Murmurs; No JVD, No Edema Abdominal: NL Sounds; No Tenderness; No Distention Lymphatic: No Cervical Adenopathy Extremities: No Edema Skin: No Rash or Ulcers Neurological: Alert and Oriented x 3, NL Muscle Strength and Tone Result Diagrams: 09/03/17 05:41 08/31/17 05:44 Assess/Plan/Problems-Billing Assessment: Ms. Link is an 82 yo female with a PMH of hypertension who was admitted on 08/30 for elective left total hip replacement. - Patient Problems (1) S/P hip replacement Comment: - Management per ortho. - Pain meds prn with bowel regimen. - PT/OT. - Hgb 9.3, stable. (2) Urinary retention Comment: - Resolved. - Patient will follow up with [facility] (3) Hypertension Comment: - SBP 130-140s. - Resume hctz. (4) Hypothyroidism Comment: - Continue levothyroxine. (5) DVT prophylaxis Comment: - Lovenox with warfarin per ortho. (6) Full code status Comment: Status and Disposition: Inpatient. Disposition per ortho.
[2017-09-03] MEDS: MINERALS AREDS2 PO SCH (08:11)
[2017-09-03] MEDS: Acetaminophen TAB* 325 MG PO PRN (08:11)
[2017-09-03] MEDS: Docusate CAP* 100 MG PO SCH (08:11)
[2017-09-03] MEDS: Magnesium Hydroxide LIQ* 30 ML UDC PO SCH (08:11)
[2017-09-03] MEDS: MULTIVITAMINS PO SCH (08:11)
--- NOTE | 2017-09-03 09:25 | PN ---
Progress Note - Progress Note Date of Service: 09/03/17 SOAP: Subjective: []Patient seen at bedside. She is ready for discharge back to [facility]. Denies LLE pain, CP, SOB, dizziness, nausea, feeling of fever or chills. Objective: [] Vital Signs Temp 98.6 F 09/03/17 07:31 Pulse 88 09/03/17 07:31 Resp 16 09/03/17 08:00 BP 141/62 09/03/17 03:58 Pulse Ox 95 09/03/17 07:31 Intake & Output 09/02/17 09/03/17 09/03/17 18:59 06:59 18:59 Intake Total 850 1250 Output Total 1500 200 Balance -650 1050 Intake: Oral 850 1250 Output: Urine 1500 200 Other: Estimated Void Medium Medium # Voids 2 1 Laboratory Last Values Hgb 9.3 g/dl (12.0-16.0) L 09/03/17 05:41 Hct 27 % (35-47) L 09/03/17 05:41 Plt Count 216 10^3/ul (150-450) 09/03/17 05:41 MPV 6.8 um3 (7.4-10.4) L 09/03/17 05:41 INR (Anticoag Therapy) 1.45 (0.77-1.02) H 09/03/17 05:41 Sodium 136 mmol/L (139-145) L 08/31/17 05:44 Potassium 3.6 mmol/L (3.5-5.0) 08/31/17 05:44 Chloride 97 mmol/L (101-111) L 08/31/17 05:44 Carbon Dioxide 31 mmol/L (22-32) 08/31/17 05:44 Anion Gap 8 mmol/L (2-11) 08/31/17 05:44 BUN 26 mg/dL (6-24) H 08/31/17 05:44 Creatinine 0.90 mg/dL (0.51-0.95) 08/31/17 05:44 Est GFR ( Amer) 77.5 (>60) 08/31/17 05:44 Est GFR (Non-Af Amer) 60.2 (>60) 08/31/17 05:44 BUN/Creatinine Ratio 28.9 (8-20) H 08/31/17 05:44 Glucose 106 mg/dL (70-100) H 08/31/17 05:44 Calcium 8.0 mg/dL (8.6-10.3) L 08/31/17 05:44 General: Well appearing, NAD LLE: Dressing changed, incision C/D/I. DP pulses 2+. Capillary refill less than two seconds distally. Sensation intact to light touch distally. DF/PF intact BL LE: Calves soft, nontender, no erythema or edema, no palpable cords. Assessment: 82yo female s/p left DONN POD #4 Plan: OOB PT/OT WBAT DVT Prophylaxis -lovenox before dc, Coumadin 4 mg today DC to [facility]
[2017-09-03] MEDS: Enoxaparin(*) 30 MG/0.3 ML SYR SUBCUT SCH (11:04)
--- NOTE | 2017-09-03 11:41 | DS ---
AMENDED REPORT NOW INCLUDES COSIGNER DESIGNATION - ESIGNED BEFORE ADJUSTMENTS DISCHARGE SUMMARY: DATE OF ADMISSION: 08/30/17 DATE OF DISCHARGE: 09/03/17 PROVIDER: Dr. 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 OPERATIVE PROCEDURE: Left total hip arthroplasty with acetabular bone autografting and primary abductor tendon repair. HISTORY: Ms. Link is an 82-year-old female with years of increasingly severe left hip pain. Radiographs showed [id number] arthritis. She failed conservative treatment and elected to undergo left total hip arthroplasty. HOSPITAL COURSE: Ms. Link was admitted to [facility] on 08/30/17. She underwent a left total hip arthroplasty with acetabular bone autografting and primary abductor tendon repair by Dr. Ricarda Domingo. The procedure was tolerated well. The patient was transferred to PACU in stable condition where she recovered briefly and then was transferred again with stable condition to the short stay surgical unit for the remainder of her stay. Postop day 1, she was well appearing, in no acute distress, dorsiflexion, plantar flexion of the left lower extremity intact. 2+ posterior tibial pulse, negative Homans' sign. Surgical dressing over the left hip was intact with no drainage noted, no odor , and no induration. She was also seen by the hospitalist service during her stay. Postop day 2, her dressing was changed. Incision was clean, dry, and intact. On postop day 1, she had some urinary retention, which was resolved by postop day 2. The patient does follow with [facility] and plans to do so again at discharge. On postop day 3, the dressing was clean, dry, and intact. Calf was soft, nontender. DP pulse 2+. Sensation intact to light touch distally. On postop day 4, the patient is well appearing, in no acute distress. Her dressing was changed. Incision was clean, dry, and intact. Dorsalis pedis pulse 2+. Capillary refill less than 2 seconds distally. Sensation is intact to light touch distally. Dorsiflexion and plantar flexion intact. Calf soft and nontender without erythema, edema, or palpable cord. Hemoglobin 9.3, hematocrit 27. INR 1.45. Temperature 98.6, pulse 88, respiratory rate 16, blood pressure 141/62, pulse ox 95%. The patient seemed to be medically and orthopedically stable for discharge home. MEDICATIONS: At discharge, home medications to be resumed: 1. Aspirin 81 mg q.a.m. 2. Calcium carbonate with vitamin D 2 chews p.o. q.a.m. 3. PreserVision 1 tab p.o. b.i.d. 4. Levothyroxine 150 mcg p.o. q.a.m. 5. Hydrochlorothiazide 25 mg p.o. q.a.m. 6. Glucosamine/chondroitin 3 chews p.o. q.a.m. 7. Cetirizine 10 mg p.o. q.a.m. New meds at discharge: 1. Acetaminophen 650 mg p.o. q.4 hours p.r.n., max daily dose of 5000 mg from all sources. 2. Docusate 100 mg p.o. b.i.d. 3. Percocet 5/325 one to two tabs every 4 to 6 hours p.r.n., max daily dose 10. 4. Warfarin 2 mg tab, please take 1 to 3 tabs daily depending on INR dosing. DISCHARGE INSTRUCTIONS: Weightbearing as tolerated. Hip precautions to be continued. Continue physical therapy and occupational therapy. Nursing will do wound checks and dressing changes. Nursing to draw blood for INR on Mondays and . Last INR was 1.45. Coumadin dosing on 09/03/17 is 4 mg. On 05/24 and 09/05/17, please take 2 mg. On 09/06/17, INR to be rechecked. Pain control with Percocet 5/325 one to two tabs every 4 to 6 hours as needed for pain, max daily dose of 10. Follow up with Dr. Domingo in 10 to [address]. HEATH MR [id number]/[facility] #: [id number] [facility]
[2017-09-03 11:58] VITALS: BP 144/68
== END 2017-09-03 12:40 | DRG 470 ==
LOC: AA 08-30 06:31 → SSU 08-30 14:12
PROVIDERS: ADMIT Orthopaedic Surgery Adult Reconstructive Orthopaedic Surgery; ATTEND Orthopaedic Surgery Adult Reconstructive Orthopaedic Surgery
PROC: 0LQK0ZZ Repair Left Hip Tendon, Open Approach (ICD-10-PCS; 2017-08-30)
PROC: 0QU507Z Supplement Left Acetabulum with Autologous Tissue Substitute, Open Approach (ICD-10-PCS; 2017-08-30)
PROC: 0SRB02A Replacement of Left Hip Joint with Metal on Polyethylene Synthetic Substitute, Uncemented, Open Approach (ICD-10-PCS; principal; 2017-08-30 08:00)
DX: M16.12 Unilateral primary osteoarthritis, left hip (principal); R33.9 Retention of urine, unspecified; M85.88 Other specified disorders of bone density and structure, other site; M25.752 Osteophyte, left hip; H35.30 Unspecified macular degeneration; E89.0 Postprocedural hypothyroidism; H91.91 Unspecified hearing loss, right ear; I12.9 Hypertensive chronic kidney disease with stage 1 through stage 4 chronic kidney disease, or unspecified chronic kidney disease; N18.9 Chronic kidney disease, unspecified; S39.013A Strain of muscle, fascia and tendon of pelvis, initial encounter; X58.XXXA Exposure to other specified factors, initial encounter; M85.68 Other cyst of bone, other site; Y92.9 Unspecified place or not applicable; Z79.82 Long term (current) use of aspirin; Z79.01 Long term (current) use of anticoagulants; Z85.3 Personal history of malignant neoplasm of breast; Z90.13 Acquired absence of bilateral breasts and nipples; Z90.49 Acquired absence of other specified parts of digestive tract; Z98.49 Cataract extraction status, unspecified eye; Z88.0 Allergy status to penicillin; Z82.49 Family history of ischemic heart disease and other diseases of the circulatory system; Z80.3 Family history of malignant neoplasm of breast; Z80.49 Family history of malignant neoplasm of other genital organs; Z97.4 Presence of external hearing-aid; Z72.89 Other problems related to lifestyle
CPT/HCPCS: 36415; 72170; 80048; 85014; 85018; 85049; 85610; 88304; 88311; A9270-GY; C1713; C1776; G8978-GP-CI; G8978-GP-CJ; G8979-GP-CH; G8979-GP-CI; G8987-GO-CK; G8988-GO-CI; J1100; J1650; J2250; J2405; J2704; J3010

== ENCOUNTER 2018-01-24 07:30 | Inpatient (IN) | payer MEDICARE, BC ==
--- NOTE | 2018-01-14 04:03 | HP ---
HISTORY AND PHYSICAL: DATE OF ADMISSION/SURGERY: 01/24/18 DATE OF OFFICE VISIT: 01/11/18 SURGEON: Ricarda Domingo MD * (DICTATED BY HEATH MILLAN) PROCEDURE: Right total hip arthroplasty. CHIEF COMPLAINT: Right hip pain. HISTORY OF PRESENT ILLNESS: Ms. Link is an 82-year-old female with complaints of right hip pain. She has failed conservative treatment and elected to proceed with a right total hip arthroplasty, which is scheduled for 01/24/18. PAST MEDICAL HISTORY: Hypertension, breast cancer, hypothyroidism, macular degeneration, microscopic hematuria. PAST SURGICAL HISTORY: Right mastectomy, thyroidectomy, cholecystectomy, right foot surgery, cataract removal, left total hip arthroplasty and x2. CURRENT MEDICATIONS: 1. Levothyroxine 150 mcg daily. 2. Hydrochlorothiazide 25 mg daily. 3. Cetirizine 10 mg daily. 4. PreserVision. 5. Tylenol as needed. ALLERGIES: PENICILLIN. FAMILY HISTORY: Diabetes, cancer, and heart disease. SOCIAL HISTORY: She is an 82-year-old female. She lives at [place]. She does not smoke, use drugs and uses occasional alcohol. REVIEW OF SYSTEMS: A complete 14-point review of systems was reviewed with the patient. It was positive for hypothyroidism. She denies a history of DVT, PE, hepatitis, HIV, or anesthesia problems. PHYSICAL EXAMINATION GENERAL: She is well developed, well nourished, in no acute distress. VITAL SIGNS: She stands 67 inches tall, weighs 144 pounds. Her blood pressure is 107/62 and her heart rate is 64. HEENT: Normocephalic, atraumatic. NECK: Supple. No palpable lymph nodes. PULMONARY: The lungs are clear to auscultation bilaterally. CARDIO: Regular rate and rhythm. Strong S1, S2. ABDOMEN: Soft, nontender, nondistended. MUSCULOSKELETAL: Right lower extremity, the skin is intact. There are no open wounds or abrasions. She walks with an antalgic type gait favoring her right hip. She has decreased internal and external rotation of the right hip. She has a 2+ dorsalis pedis pulse. Intact sensation. Her lower extremity muscle group strengths are intact at 5/5. NEUROLOGICAL: She is alert, oriented x3. ASSESSMENT AND PLAN: Ms. Link is an 82-year-old female with right hip pain secondary to end-stage osteoarthritis. She has failed conservative treatment and elected to proceed with a right total hip arthroplasty, which is scheduled for 01/24/[address] Domingo discussed the risks and benefits of the surgery at today's visit and all of her questions were answered. She will follow up with Dr. Domingo 2 weeks after the surgery. HEATH MILLAN [id number]/[facility] #: [id number] DAG[facility]
[~2018-01-24 07:30] MED LIST: Buffered Lidocaine 0.9% SYRIN* 5 ML/SYR SYRINGE INTRADERM ONE; Famotidine IV* 10 MG/ML 2 ML (20 mg) IV ONE
[2018-01-24] MEDS ORDERED: Clindamycin 900 MG/D5W BAG(*) 900 MG/50 ML BAG IVPB ONE (07:57)
[2018-01-24] MEDS ORDERED: Famotidine IV* 10 MG/ML 2 ML (20 mg) ONE (07:57)
[2018-01-24] MEDS ORDERED: Propofol* 10 MG/ML 20 ML BTL IV PUSH ONE (08:07)
[2018-01-24] MEDS ORDERED: Ketorolac INJ* 30 MG/ML 1 ML VIAL ONE (08:07)
[2018-01-24] MEDS ORDERED: Cisatracurium* 2 MG/ML MDV 5 ML ONE (08:07)
[2018-01-24] MEDS ORDERED: Dexamethasone IV* 4 MG/ML 1 ML (4 MG) ONE (08:07)
[2018-01-24] MEDS ORDERED: Lidocaine 2% PF * 5 ML VIAL ONE (08:07)
[2018-01-24] MEDS ORDERED: Ondansetron INJ* 2 MG/ML VIAL ONE (08:07)
[2018-01-24] MEDS ORDERED: KETAMINE HCL* 50 MG/ML 10 ML VIAL ONE (08:07)
[2018-01-24] MEDS ORDERED: Midazolam* 1 MG/ML 5 ML VIAL (5 MG) ONE (08:07)
[2018-01-24] MEDS ORDERED: fentaNYL* 50 MCG/ML 2 ML VIAL (100 MCG VIAL) ONE ×3 (08:07→11:54)
[2018-01-24] MEDS ORDERED: EPHEDrine (Pressors)* 50 MG/ML VIAL ONE (09:30)
--- NOTE | 2018-01-24 10:48 | RAD ---
Indication: Right hip replacement Single view of the right hip taken in the operating room demonstrates femoral reamer and acetabular cup in place. IMPRESSION: Intraoperative control films for right hip placement.
[2018-01-24] MEDS ORDERED: ROPIVACAINE 5 MG/ML 30 ML BTL (0.5%) ONE (10:57)
[2018-01-24] MEDS ORDERED: HYDROmorphone INJ1* 1 MG/ML SYRINGE ONE ×2 (11:25→11:54)
[2018-01-24] MEDS ORDERED: Labetalol IV* 5 MG/ML 20 ML VIAL ONE (11:27)
[2018-01-24] MEDS ORDERED: oxyCODONE/Acetamin 5/325 MG* TAB ONE (14:40)
[2018-01-24] MEDS: oxyCODONE/Acetamin 5/325 MG* TAB PO PRN ×2 (14:45→20:01)
[2018-01-24] MEDS ORDERED: Acetaminophen TAB* 325 MG PO PRN (16:49)
[2018-01-24] MEDS ORDERED: oxyCODONE/Acetamin 5/325 MG* TAB PO PRN (16:49)
[2018-01-24] MEDS ORDERED: oxyCODONE TAB* 5 MG TAB PO PRN (16:50)
[2018-01-24] MEDS ORDERED: Morphine VIAL* 4 MG/ML VIAL (1 ml vial) IV PRN (16:51)
[2018-01-24] MEDS ORDERED: diPHENhydraMINE IV* 50 MG/ML 1 ml VIAL (BENADRYL) IV PRN (16:51)
[2018-01-24] MEDS ORDERED: Ondansetron INJ* 2 MG/ML VIAL IV PRN (16:51)
[2018-01-24] MEDS ORDERED: Magnesium Hydroxide LIQ* 30 ML UDC PO PRN (16:52)
[2018-01-24] MEDS ORDERED: diPHENhydraMINE LIQ* 12.5 MG/5 ML UDC PO PRN (16:52)
[2018-01-24] MEDS ORDERED: Bisacodyl SUPP* 10 MG SUPP PR PRN (16:52)
[2018-01-24] MEDS ORDERED: Warfarin TAB(*) 6 MG PO ONE (17:00)
[2018-01-24] MEDS: Clindamycin 600 MG IVPREMIX(* 600 MG/50 ML SDV IV SCH (17:34)
[2018-01-24] MEDS: Cetirizine* 10 MG TAB PO SCH (20:01)
[2018-01-24] MEDS: Docusate CAP* 100 MG PO SCH (20:01)
[2018-01-24] MEDS: Magnesium Hydroxide LIQ* 30 ML UDC PO SCH (20:02)
--- NOTE | 2018-01-25 00:42 | CONS ---
CONSULTATION REPORT: DATE OF CONSULT: 01/24/18 CONSULTING PROVIDER: Daniel Pereira MD SERVICE REQUESTING CONSULT: Dr. Ricarda Domingo of Orthopedics. REASON FOR CONSULT: Hypertension management in the setting of a right total hip replacement. PRIMARY CARE PROVIDER: Dr. Noa Nelson. HISTORY OF PRESENT ILLNESS: Danika Link is an 83-year-old female with past medical history of hypertension, breast cancer, hypothyroidism, macular degeneration, microscopic hematuria, and osteoarthritis, who presented for elective right total hip replacement on the date of admission. Five months earlier, she has gotten her left total hip replaced. She has been recuperating well after surgery. Reports adequate pain control on the Percocet 2 tabs q.4 hours p.r.n., which she received 2 tabs at 2:45 p.m. Initially, her pain was little uncontrolled prior to this medication. She is otherwise without complaint other than poor appetite, did not eat much of her dinner just now. PAST MEDICAL HISTORY: Hypertension, breast cancer, hypothyroidism, macular degeneration, microscopic hematuria, left total hip arthroplasty, x2, right foot surgery, cataract removal, cholecystectomy, thyroidectomy, right mastectomy. MEDICATIONS: Home medications include: 1. Synthroid 150 mcg daily. 2. Hydrochlorothiazide 25 mg daily. 3. Cetirizine 10 mg daily. 4. PreserVision. 5. Tylenol p.r.n. ALLERGIES: PENICILLIN (60 years ago developed rash, hives, and passed out, though of note she states Dr. Avila her day care provider did not find evidence of penicillin allergy on recent skin prick testing). FAMILY HISTORY: Mother of uterine cancer, age 81. Father of myocardial infarction at age 60. There is paternal history of diabetes mellitus with paternal grandmother and 2 cousins with juvenile diabetes. SOCIAL HISTORY: She lives at [place]. 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 She is never smoker. Occasionally has alcohol. No drug use. She has an outpatient DNR, but desires to be full code while she is here in the hospital. She is accompanied by her medical surrogate, Mohamud Bloom, her daughter from [place], [place]. REVIEW OF SYSTEMS: A complete 14-point review of systems negative except as per HPI. PHYSICAL EXAM: General Appearance: No acute distress. Vital Signs: Temperature 97.3, pulse rate 64, respiratory rate 16, oxygen sat 100% on 2 L, and blood pressure 116/53. HEENT: Normocephalic, atraumatic. Pupils equal, round, and reactive to light. Extraocular motions intact. No scleral icterus. Lungs: Clear to auscultation bilaterally with no wheezing, rales, or rhonchi anteriorly. Cardiovascular: Regular rate and rhythm. No murmurs, rubs, or gallops. Abdomen: Soft, nontender, nondistended. Extremities: Warm, well perfused. No peripheral edema. Right hip bandaged without any erythema or drainage. No hematoma observed. DIAGNOSTIC STUDIES/LAB DATA: None. Baseline creatinine from 12/28/17 was 0.82 with GFR of 67.1. Last TSH of 0.56 on 12/28/17. Imaging: Hip x-ray showed intraoperative right hip replacement. ASSESSMENT AND PLAN: Danika Link is an 83-year-old female with hypertension, hypothyroidism, osteoarthritis, now status post right total hip, who has been recovering well. We have been consulted for management of hypertension in the setting of right total hip replacement. Agree with continuation of her hydrochlorothiazide 25 mg starting the day after surgery. Otherwise, for her hypothyroidism, continue her 150 mcg of Synthroid. For pain control, she is getting Percocet 1 or 2 tabs q.4 hours p.r.n. with additional 10 mg oxycodone q.6 hours p.r.n. per orthopedic service. For DVT ppx she is on Lovenox 40 mg q.24 hours with initiation of warfarin 6 mg daily and getting an INR daily. She is getting clindamycin 600 mg IV q.8 hours for 3 doses perioperatively. She is bowel regimen of docusate 100 mg p.o. b.i.d. and Dulcolax suppository 10 mg per rectum daily p.r.n. She is complaining of the nasal cannula, satting 100 %, currently on 2 L. I have put in an order to wean that every 4 hours as able. We appreciate the interesting consult, but no further issues and therefore, we will sign off. Please call with any questions as necessary. I have updated the code status in [employer] to full code status per her request. [id number]/CPS #: [id number] MTDD
[2018-01-25] MEDS: Clindamycin 600 MG IVPREMIX(* 600 MG/50 ML SDV IV SCH ×2 (02:12→09:19)
[2018-01-25] MEDS: oxyCODONE/Acetamin 5/325 MG* TAB PO PRN ×5 (03:28→21:23)
[2018-01-25] MEDS: Levothyroxine TAB* 150 MCG TAB PO SCH (06:09)
[2018-01-25] MEDS: Docusate CAP* 100 MG PO SCH ×2 (07:39→21:46)
[2018-01-25] MEDS: Magnesium Hydroxide LIQ* 30 ML UDC PO SCH ×2 (07:40→21:46)
[2018-01-25 08:02] LABS: Hematocrit 29 % (35-47); Hemoglobin 9.9 g/dl (12.0-16.0)
[2018-01-25 08:08] LABS: INR 1.08 (0.77-1.02)
[2018-01-25 08:23] LABS: EGFR Non-African American 59.3 (>60)
--- NOTE | 2018-01-25 08:34 | RAD ---
INDICATION: Status post total right hip replacement surgery. COMPARISON: Comparison is made with a prior x-ray study of the right hip from January 11, 2018. TECHNIQUE: An AP view of the pelvis and frontal and lateral views of the right hip were obtained. FINDINGS: The patient is status post total right hip replacement surgery. The bones and prostheses are in normal alignment. There is air within the adjacent soft tissues consistent with the patient's recent surgery. The patient is status remote total left hip replacement surgery. IMPRESSION: STATUS POST TOTAL RIGHT HIP REPLACEMENT SURGERY.
--- NOTE | 2018-01-25 08:52 | PN ---
Progress Note - Progress Note Date of Service: 01/25/18 SOAP: Subjective: POD #1 Right DONN, doing well. Pain well controlled. Denies CP/SOB, n/v, f/c Objective: Vitals: Temp Pulse Resp BP Pulse Ox 98.3 F 80 18 99/41 99 01/25/18 07:36 01/25/18 07:36 01/25/18 07:40 01/25/18 07:36 01/25/18 07:36 Gen: A&Ox3, NAD at rest sitting in bed Right hip: Dressing C/D/I, thigh soft, NT. +f/e at ankle and MTPs. N/V intact. Calf soft, NT Labs: Laboratory Results - last 24 hr 01/24/18 01/25/18 01/25/18 08:34 07:26 07:26 Hgb 9.9 L Hct 29 L INR (Anticoag Therapy) 1.08 H Sodium Potassium Chloride Carbon Dioxide Anion Gap BUN Creatinine Est GFR ( Amer) Est GFR (Non-Af Amer) BUN/Creatinine Ratio Glucose Calcium Blood Type O Positive Antibody Screen Negative 01/25/18 07:26 Hgb Hct INR (Anticoag Therapy) Sodium 134 L Potassium 3.7 Chloride 96 L Carbon Dioxide 30 Anion Gap 8 BUN 24 Creatinine 0.91 Est GFR ( Amer) 71.8 Est GFR (Non-Af Amer) 59.3 BUN/Creatinine Ratio 26.4 H Glucose 105 H Calcium 7.5 L Blood Type Antibody Screen Assessment: POD #1 Right DONN Plan: PT/OT with posterior hip precautions INR 1.08, Coumadin 6mg tonight Percocet as needed for pain
[2018-01-25] MEDS ORDERED: Hydrochlorothiazide TAB* 25 MG PO SCH (09:00)
[2018-01-25] MEDS: Enoxaparin(*) 40 MG/0.4 ML SYR SUBCUT SCH (11:51)
--- NOTE | 2018-01-25 16:17 | OP ---
OPERATIVE REPORT: DATE OF OPERATION: 01/24/18 DATE OF : 39 ATTENDING SURGEON: Ricarda Domingo MD. HEALTH CARE ASSISTANT: HEATH Dewitt. Mr. Jaramillo did help throughout the procedure with preparation of the leg, wound retraction, manipulat ion of the hip, and wound closure. ANESTHESIOLOGIST: Dr. Neal. ANESTHESIA: General. PRE-OP DIAGNOSIS: Severe endstage osteoarthritis of the right hip joint. POST-OP DIAGNOSIS: Severe endstage osteoarthritis of the right hip joint. OPERATIVE PROCEDURE: Right total hip arthroplasty. COMPLICATIONS: None. ESTIMATED BLOOD LOSS: 200 mL. SPECIMENS: Femoral head and acetabular remains, sent to pathology. HARDWARE USED: This is uncemented iSSimple total hip arthroplasty hardware. For the cup, a 54E Trita nium cluster hole shell, a single 20-mm screw was used. For the liner, an MDM cementless liner 42E. For the stem, an Accolade TMZF size 2 with a 127-degree neck angle. For the head, a 28 -4 LFIT V40 femoral head and the AVM/MDM baptist X3 insert was 28/48/42E. BRIEF HISTORY/INDICATION: Ms. Link is an 83-year-old female with years of increasingly severe right hip pain. She failed conservative treatment with anti- inflammatories, pain medications, physical t herapy, and ambulatory assistive device. Due to continued pain and decreased quality of life, she el ected to undergo right total hip arthroplasty. Radiographs showed severe endstage arthritis of the r ight hip joint. Informed consent was obtained from the patient. She understood the risks of surgery included, but were not limited to bleeding, infection, damage to nearby structures, continued pain, need for further surgery, intraoperative fracture, nerve palsy, hardware failure or loosening, disloc ation, leg length discrepancies, stroke, heart attack, blood clot, and . She wished to proceed. INTRAOPERATIVE FINDINGS: Intraoperatively, the patient was noted to have severe end-stage arthritis with complete loss of cartilage along the acetabulum and femoral head. There was osteophyte formatio n and sclerotic bone along the acetabulum with a thin posterior wall. DESCRIPTION OF PROCEDURE: Ms. Link was identified in the preanesthesia unit. Her right lower extre mity was marked as the correct operative side. Informed consent was signed and placed in the chart. The patient was taken to the operating room and placed under general anesthesia. A Hernandez catheter w as placed. She was placed in the left lateral decubitus position. All bony prominences were well pa dded. Right lower extremity was prepped and draped in the usual sterile fashion. Preop time-out was made to correctly identify the patient's side and site. Appropriate perioperative antibiotics were g iven within 1 hour of incision. A 12-cm posterior hip incision was made with a 10-blade and carried down to the lateral fascial layer . Lateral fascial layer was incised in line with the skin incision. Charnley retractor was placed. The piriformis and conjoint tendons were elevated off the posterolateral femur and tagged with #5 Et hibond. Electrocautery was then used to make a standard posterolateral capsular flap and this was al so tagged with #5 Ethibond. The hip was carefully dislocated. Lesser troch to center of the femoral head measured at 55 mm. Oscillating saw was used to make the femoral neck cut. Femoral head was ca refully removed. The femur was retracted anteriorly. After appropriate placement of retractor, the acetabulum was well visualized. Long-handled knife was used to sharply remove any remaining labrum from the acetabular rim. The acet abulum was sequentially reamed up to a size 53. A 53 reamer obtained a bleeding subchondral bone bed . A 53 trial had excellent fit and stability. Final implant chosen was a 54E Tritanium cluster hole shell. This was impacted into the acetabulum without difficulty. The cup was stable with satisfact ory anteversion and abduction angle. A single 20 mm screw was placed in the superior posterior quadr ant for extra stability. MDM cementless liner 42E was chosen as the correct liner and this was impac eloise into the acetabulum. Stability of the liner was checked and rechecked and noted to be stable. Attention was then turned to preparation of the femur. A canal finder was used to enter the proximal femur. The femur was sequentially broached up to a size 3. Size 3 broach had excellent fit with wilbur ropriate anteversion. A 127 neck trial and a 28 -4 head trial was chosen with the appropriate MDM in sert trial. Lesser troch to the center of the femoral head measured 56 mm. The hip was reduced and taken through range of motion. The hip was stable in all positions. Leg lengths and soft tissue ten sions were appropriate. The hip was carefully dislocated. All trials were removed. Final implant c hosen was an Accolade TMZF size 3 with a 127- degree neck. This was impacted into the femoral canal without difficulty. The stem was stable with appropriate anteversion. The Lobito LFIT V40 femoral head 28 -4 with the MDM X3 insert, /42E was prepared. This was impacted down to the femoral nec k. Lesser troch to the center of the femoral head measured 56 mm. The hip was reduced and taken thr ough a range of motion. The hip was stable in all positions. The hip was copiously irrigated with sterile saline. Previously tagged tendons and capsule were reap proximated to the posterolateral femur through 2 trochanteric drill holes. The lateral fascial layer was closed using interrupted #1 Vicryls. The rest of the incision was closed in a layered fashion us ing 0 and 2-0 Vicryls. Skin was closed using running 3-0 Monocryl suture. Dermabond was placed over this. Sterile Adaptic, 4x4s, and paper tape were placed over the incision. The patient's anesthesia was reversed without difficulty. She was taken to the PACU in stable condition. Intended weightbear ing will be weightbearing as tolerated. Intended DVT prophylaxis will be Coumadin with a Lovenox ismael dge. [id number]/[facility] #: [id number]
[2018-01-25] MEDS ORDERED: Warfarin TAB(*) 6 MG PO ONE (17:00)
[2018-01-25] MEDS: Cetirizine* 10 MG TAB PO SCH (21:46)
[2018-01-26 05:56] LABS: Hematocrit 27 % (35-47); Hemoglobin 9.2 g/dl (12.0-16.0)
[2018-01-26 06:03] LABS: INR 1.63 (0.77-1.02)
[2018-01-26] MEDS: Levothyroxine TAB* 150 MCG TAB PO SCH (06:24)
[2018-01-26] MEDS: oxyCODONE/Acetamin 5/325 MG* TAB PO PRN ×3 (06:27→20:25)
[2018-01-26] MEDS: Docusate CAP* 100 MG PO SCH ×2 (08:32→20:25)
[2018-01-26] MEDS: Magnesium Hydroxide LIQ* 30 ML UDC PO SCH ×2 (09:32→20:19)
--- NOTE | 2018-01-26 09:54 | PN ---
Progress Note - Progress Note Date of Service: 01/26/18 SOAP: Subjective: [Pt doing well. No complaints. Pain well - managed. Denies CP, SOB, dizziness , nausea. Slept] Objective: [A and O x3, NAD Sitting in chair. Daughter at bedside R hip dressing changed. Wound benign. No drainage or erythema Distal gross motor and NV function intact. Calves soft, NT Vital Signs: Temp Pulse Resp BP Pulse Ox 98.6 F 81 16 118/45 93 01/26/18 08:47 01/26/18 08:47 01/26/18 09:33 01/26/18 08:47 01/26/18 08:47 Laboratory Results - last 24 hr 01/26/18 01/26/18 05:07 05:07 Hgb 9.2 L Hct 27 L INR (Anticoag Therapy) 1.63 H ] Assessment: [s/p R DONN POD #2] Plan: [PT/OT - post hip precautions INR 1.63 - 6 mg coumadin today Percocet for pain control Will go back to [facility] upon discharge]
[2018-01-26] MEDS: Enoxaparin(*) 40 MG/0.4 ML SYR SUBCUT SCH (11:47)
[2018-01-26] MEDS ORDERED: Warfarin TAB(*) 6 MG PO SCH (17:00)
[2018-01-26] MEDS: Cetirizine* 10 MG TAB PO SCH (20:25)
[2018-01-26] MEDS: Cyclobenzaprine TAB* 10 MG PO PRN (23:40)
[2018-01-27] MEDS: Levothyroxine TAB* 150 MCG TAB PO SCH (05:49)
[2018-01-27] MEDS: oxyCODONE/Acetamin 5/325 MG* TAB PO PRN ×2 (05:56→12:01)
[2018-01-27 06:08] LABS: Hematocrit 26 % (35-47); Hemoglobin 8.9 g/dl (12.0-16.0)
[2018-01-27 06:16] LABS: INR 1.82 (0.77-1.02)
[2018-01-27] MEDS: Docusate CAP* 100 MG PO SCH ×2 (08:56→20:58)
[2018-01-27] MEDS: Magnesium Hydroxide LIQ* 30 ML UDC PO SCH ×2 (08:56→20:58)
--- NOTE | 2018-01-27 09:08 | PN ---
Progress Note - Progress Note Date of Service: 01/27/18 SOAP: Subjective: [Pt doing well. Minimal c/o pain. Denies CP/SOB, f/c, n/v.] Objective: [A and O x3 NAD. Heading to PT upon my visit. R hip dressing c/d/i Distal gross motor, nv function intact Vital Signs: Temp Pulse Resp BP Pulse Ox 98.8 F 67 18 106/41 96 01/27/18 07:34 01/27/18 07:34 01/27/18 08:40 01/27/18 07:34 01/27/18 07:34 Laboratory Results - last 24 hr 01/27/18 01/27/18 05:14 05:18 Hgb 8.9 L Hct 26 L INR (Anticoag Therapy) 1.82 H ] Assessment: [s/p R DONN POD #3] Plan: [PT/OT - post hip precautions Percocet for pain INR 1.82 - 5 mg coumadin tonight D/C to [facility] rehab tomorrow]
[2018-01-27] MEDS: Enoxaparin(*) 40 MG/0.4 ML SYR SUBCUT SCH (12:01)
[2018-01-27] MEDS ORDERED: Warfarin TAB(*) 5 MG PO ONE (17:00)
[2018-01-27] MEDS: Cetirizine* 10 MG TAB PO SCH (20:57)
[2018-01-27] MEDS: Cyclobenzaprine TAB* 10 MG PO PRN (21:21)
[2018-01-28 05:41] LABS: Mean Platelet Volume 7.3 um3 (7.4-10.4); Platelet Count 230 10^3/ul (150-450)
[2018-01-28 05:45] LABS: INR 1.99 (0.77-1.02)
[2018-01-28] MEDS: Levothyroxine TAB* 150 MCG TAB PO SCH (06:23)
[2018-01-28 09:40] VITALS: BP 129/51
[2018-01-28] MEDS: oxyCODONE/Acetamin 5/325 MG* TAB PO PRN (09:45)
[2018-01-28] MEDS: Docusate CAP* 100 MG PO SCH (09:45)
[2018-01-28] MEDS: Magnesium Hydroxide LIQ* 30 ML UDC PO SCH (09:52)
--- NOTE | 2018-01-28 10:31 | PN ---
Progress Note - Progress Note Date of Service: 01/28/18 SOAP: Subjective: [] patient seen and examined at bedside. She feels well and desires DC back to [place]. Denies chest pain, shortness of breath, dizziness, nausea, dysuria, confusion. Dressing was changed by nursing staff this morning after a shower with reports of a clean, dry and intact incision without redness or discharge. Objective: []General: Well appearing, NAD RLE: DF/PF intact. Sensation intact distally. Thigh is soft. Calves supple and nontender without erythema, edema or palpable cords Assessment: []SP right total hip replacement Plan: []WBAt PT/OT lovenox last dose today. coumadin 4 mg today DC to home at [place] Vital Signs Temp 99.2 F 01/28/18 07:27 Pulse 77 01/28/18 07:27 Resp 16 01/28/18 09:45 BP 129/51 01/28/18 07:27 Pulse Ox 97 01/28/18 07:27 Intake & Output 01/27/18 01/28/18 01/28/18 18:59 06:59 18:59 Intake Total 730 900 560 Output Total 300 0 Balance 430 900 560 Intake: Oral 730 900 560 Output: Urine 300 0 Other: Estimated Void Medium Small # Bowel Movements 1 Estimated Stool Amount Medium Medium # Voids 1 Laboratory Last Values Hgb 8.9 g/dl (12.0-16.0) L 01/27/18 05:14 Hct 26 % (35-47) L 01/27/18 05:14 Plt Count 230 10^3/ul (150-450) 01/28/18 05:04 MPV 7.3 um3 (7.4-10.4) L 01/28/18 05:04 INR (Anticoag Therapy) 1.99 (0.77-1.02) H 01/28/18 05:04 Sodium 134 mmol/L (135-145) L 01/25/18 07:26 Potassium 3.7 mmol/L (3.5-5.0) 01/25/18 07:26 Chloride 96 mmol/L (101-111) L 01/25/18 07:26 Carbon Dioxide 30 mmol/L (22-32) 01/25/18 07:26 Anion Gap 8 mmol/L (2-11) 01/25/18 07:26 BUN 24 mg/dL (6-24) 01/25/18 07:26 Creatinine 0.91 mg/dL (0.51-0.95) 01/25/18 07:26 Est GFR ( Amer) 71.8 (>60) 01/25/18 07:26 Est GFR (Non-Af Amer) 59.3 (>60) 01/25/18 07:26 BUN/Creatinine Ratio 26.4 (8-20) H 01/25/18 07:26 Glucose 105 mg/dL (70-100) H 01/25/18 07:26 Calcium 7.5 mg/dL (8.6-10.3) L 01/25/18 07:26 Blood Type O Positive 01/24/18 08:34 Antibody Screen Negative 01/24/18 08:34
--- NOTE | 2018-01-30 06:16 | DS ---
DISCHARGE SUMMARY: DATE OF ADMISSION: 01/24/18 DATE OF DISCHARGE: 01/28/18 PROVIDER: Dr. Ricarda Domingo.* (DICTATED BY HEATH RM) SECURITIES ANALYST: HEATH Dewitt PREOPERATIVE DIAGNOSIS: Severe end-stage osteoarthritis of the right hip joint. OPERATIVE PROCEDURE: Right total hip arthroplasty. HISTORY: Ms. Link is an 83-year-old female with years of increasingly severe right hip pain. She elected to undergo a right total hip arthroplasty after failing conservative management. HOSPITAL COURSE: The patient was admitted to [facility] on . She underwent a right total hip arthroplasty without complications. On postop day 1, she was well appearing, in no acute distress. Dressing clean, dry , and intact. Dorsiflexion and plantarflexion intact. Neurovascularly intact distally. On postop day 2, right hip dressing was changed, wound was benign. Dressing again changed on postop day 3. Again, without any notable change postop day 4. Vital signs, temperature 99.2, pulse 77, respiratory rate 16, blood pressure 129/51, pulse ox 97. LABORATORY DATA: Hemoglobin 8.9, hematocrit 26, values from 01/27/18. INR 1.99. On 01/28/18, the patient is deemed to be medically and orthopedically stable for discharge back to home at [place]. DISCHARGE MEDICATIONS: 1. Aspirin 81 mg p.o. q.a.m. 2. Vitamin D3 with calcium carbonate 3 chews p.o. q.a.m. 3. PreserVision 1 tab p.o. b.i.d. 4. Levothyroxine 150 mcg p.o. q.a.m. 5. Hydrochlorothiazide 25 mg p.o. q.a.m. 6. Glucosamine chondroitin 3 chews p.o. q.a.m. 7. Cetirizine 10 mg p.o. q.p.m. 8. Acetaminophen 650 mg p.o. q.4 hours p.r.n. 9. Docusate 100 mg p.o. b.i.d. p.r.n. 10. Percocet 5/325 one to two tabs every 4 to 6 hours as needed for pain, max daily dose of 10. 11. Warfarin 2 mg tabs p.o. 1 to 3 tabs daily, dose depends on INR. Discontinue tramadol and ibuprofen at home. DISCHARGE PLAN: The patient will be weightbearing as tolerated. Continue hip precautions. The patient will be discharged to [facility]. She will take Coumadin for 30 days postop; 01/28/18 through 01/30/18, she will take 4 mg daily. Her INR will be rechecked on 01/31/18 for further dosing instructions. Pain control with Percocet 5/325 one to two tabs by mouth every 4 to 6 hours as needed for pain, max of 10 tabs per day. Follow up with Dr. Domingo in 10 to 12 days, sooner with any concerns. HEATH RM [id number]/[facility]PS #: [id number] MTDD
== END 2018-01-28 11:30 | DRG 470 ==
LOC: AA 07:53 → SSU 13:15
PROVIDERS: ADMIT Orthopaedic Surgery Adult Reconstructive Orthopaedic Surgery; ATTEND Orthopaedic Surgery
PROC: 0SR901A Replacement of Right Hip Joint with Metal Synthetic Substitute, Uncemented, Open Approach (ICD-10-PCS; principal; 2018-01-26)
DX: M16.11 Unilateral primary osteoarthritis, right hip (principal); I10 Essential (primary) hypertension; H35.30 Unspecified macular degeneration; E89.0 Postprocedural hypothyroidism; Z96.642 Presence of left artificial hip joint; H91.91 Unspecified hearing loss, right ear; Z96.21 Cochlear implant status; J30.9 Allergic rhinitis, unspecified; M25.751 Osteophyte, right hip; Z80.9 Family history of malignant neoplasm, unspecified; Z85.3 Personal history of malignant neoplasm of breast; Z90.11 Acquired absence of right breast and nipple; Z90.49 Acquired absence of other specified parts of digestive tract; Z98.49 Cataract extraction status, unspecified eye; Z88.0 Allergy status to penicillin; Z83.3 Family history of diabetes mellitus; Z82.49 Family history of ischemic heart disease and other diseases of the circulatory system; Z87.01 Personal history of pneumonia (recurrent); Z86.19 Personal history of other infectious and parasitic diseases; Z72.89 Other problems related to lifestyle; Z80.49 Family history of malignant neoplasm of other genital organs; Z23 Encounter for immunization
CPT/HCPCS: 36415; 80048; 85014; 85018; 85049; 85610; 86850; 86900; 86901; 90686; A9270-GY; G8978-GP-CJ; G8978-GP-CK; G8979-GP-CI; G8980-GP-CI; G8987-GO-CJ; G8988-GO-CI; J1100; J1170; J1650; J1885; J2250; J2405; J2704; J2795; J3010

== ENCOUNTER 2018-09-05 08:01 | Day surgery (SDC) | payer MEDICARE, BC ==
[~2018-09-05 08:01] MED LIST changes: -Buffered Lidocaine 0.9% SYRIN* 5 ML/SYR SYRINGE INTRADERM ONE; +Buffered Lidocaine 1% SYRIN* 1 ML/SYRINGE INTRADERM ONE; -Famotidine IV* 10 MG/ML 2 ML (20 mg) IV ONE; +Lactated Ringers 1000 ML Bag* 1,000 ML IV SCH; +Sodium Citrate/Citric Acid* 15 ML UDC PO ONE
[2018-09-05] MEDS ORDERED: Sodium Citrate/Citric Acid* 15 ML UDC ONE (08:21)
[2018-09-05] MEDS ORDERED: Buffered Lidocaine 1% SYRIN* 1 ML/SYRINGE INTRADERM ONE (08:23)
[2018-09-05] MEDS ORDERED: Naloxone* 0.4 MG/ML 1 ML VIAL IV PRN ×2 (08:33→09:07)
[2018-09-05] MEDS ORDERED: Bupivacaine 0.25% SDV* 30 ML ONE (08:59)
[2018-09-05] MEDS ORDERED: Lidocaine 1% MPF* 2 ML VIAL ONE (09:02)
[2018-09-05] MEDS ORDERED: Betamethasone INJ* 6 MG/ML 5 ML VIAL (30 MG) ONE (09:03)
[2018-09-05] MEDS ORDERED: Propofol* 10 MG/ML 20 ML BTL ONE (09:14)
[2018-09-05] MEDS ORDERED: Lidocaine 2% PF * 5 ML VIAL ONE (09:14)
[2018-09-05] MEDS ORDERED: fentaNYL* 50 MCG/ML 2 ML VIAL (100 MCG VIAL) ONE (09:15)
[2018-09-05 11:05] VITALS: BP 153/57
--- NOTE | 2018-09-05 13:55 | OP ---
DATE OF OPERATION: 09/05/18 - [facility] DATE OF : 39 SURGEON: Tono Hutton MD INSIGHTS MANAGER: HEATH Rangel ANESTHESIOLOGIST: Dr. Barrera. ANESTHESIA: General. PRE-OP DIAGNOSES: 1. Left carpal tunnel syndrome. 2. 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 POST-OP DIAGNOSES: 1. Left carpal tunnel syndrome. 2. 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 OPERATIVE PROCEDURE: 1. Left endoscopic carpal tunnel release. 2. Right index finger proximal interphalangeal joint corticosteroid injection with lidocaine and betamethasone. INDICATIONS: Danika has the aforementioned condition. She has done very well with the carpal tunnel release on the right. She wants to do a carpal tunnel release on the left. She is interested in doing endoscopically. We talked about risks and benefits. She wanted to proceed. She is also having the index finger pain and swelling in the PIP joint. ESTIMATED BLOOD LOSS: 2 mL. COMPLICATIONS: None. FINDINGS: See above and below. DESCRIPTION OF PROCEDURE: Danika was seen in the preoperative holding area. The correct side, site, and procedure were identified. We came back to the operating room where we had a time-out and I injected the right index finger PIP joint with 1 mL of 1% lidocaine and 6 mg of betamethasone. The left arm was then prepped and draped in the usual fashion and time-out was performed. The arm was exsanguinated with an Esmarch and a forearm-based tourniquet was inflated to 200 mmHg. I began by making a 1 cm transverse incision about a centimeter proximal to wrist flexion crease over the ulnar aspect of the distal ulna to where the palmaris longus tendon would be. Dissection was carried down. The distal antebrachial fascia was split longitudinally, bluntly with the tenotomy scissors and a 2-prong skin hook was placed. I the used the synovial stripper, followed by the dilators and then a Q-tip to dry out the carpal tunnel. The [employer] endoscopic carpal tunnel system was then introduced and once I had it in the appropriate location, I elevated the blade and then pulled back to release the transverse carpal ligament. I then placed a Darwin retractor in the wound and put the camera back into the wound. I confirmed that the release was complete. I then released the distal antebrachial fascia proximally with the tenotomy scissors. The wound was then irrigated out. The skin was closed with 4-0 nylon suture. Soft dressings were applied and she was taken to the recovery room in stable condition. [id number]/[facility] #: [id number] MTDDa
== END 2018-09-05 11:05 | disposition home or self-care (01) ==
LOC: OREAST 08:01
PROVIDERS: ATTEND Orthopaedic Surgery Hand Surgery
DX: G56.02 Carpal tunnel syndrome, left upper limb (principal); M19.041 Primary osteoarthritis, right hand; I10 Essential (primary) hypertension; E03.9 Hypothyroidism, unspecified; Z85.3 Personal history of malignant neoplasm of breast
CPT/HCPCS: A9270-GY; J0702; J2704; J3010; J3490